=== PATIENT | female | born 1940 | race Caucasian/White ===

== ENCOUNTER 2019-06-24 13:22 | Emergency (ER) | payer OTHER ==
[~2019-06-24] VITALS: Ht 144.8 cm; Wt 53.5 kg
[~2019-06-24 13:22] MED LIST: CALCIUM 600 +1 EAC1 PO; CARDIZEM CD120 MG PO; COUMADIN 5 MG TA5 M1 PO; CRESTOR10 MG PO; CRESTOR5 MG; DULERA 100 MCG/13 GM INH; EYE DROPS; FISH OIL 1,0001 EAC5 PO; LISINOPRIL10 MG PO; LUMIGAN2.5 M1 OPHTHALMIC; NOVOLOG100 UNIT/1; PRADAXA150 MG PO; PRINIVIL40 MG
[2019-06-24 13:55] LABS: ABSOLUTE NEUTROPHILS 2.8 thou/uL (1.4-8.2); BASOPHILS 0.8 % (0.0-2.0); EOSINOPHILS 1.7 % (0.0-3.0); HEMATOCRIT 37.8 % (37.0-47.0); HEMOGLOBIN 12.2 gm/dL (12.0-15.0); MCHC 32.4 g/dL (28.0-37.0); MCV 89.4 fL (80.0-100.0); MONOCYTES 7.3 % (1.0-8.0); PLATELET COUNT 360 thou/uL (150-400); POLYS 45.2 % (36.0-66.0); RBC 4.23 mil/uL (4.20-5.00); RDW 13.9 % (10.5-14.5); WBC 6.2 thou/uL (4.0-11.0)
[2019-06-24 13:56] LABS: CALCIUM 9.5 mg/dL (8.5-10.1); POTASSIUM 3.9 mmol/L (3.5-5.1)
[2019-06-24] MEDS ORDERED: WELLBUTRIN SR150 MG PO (14:33)
[2019-06-24 14:38] VITALS: BP 114/55
--- NOTE | 2019-06-25 08:34 | EKG ---
[place] [address] [facility] [employer] [place] [address] ELECTROCARDIOGRAM REPORT Name: KIMI JO [facility] Room #: DEP [facility]#: [id number] Admission: 06/24/19 Attend Phys: Discharge: 06/24/19 Date of : 44 Report #: [id number] THIS REPORT FOR: //name// [facility] ED Test Date: 2019-06-24 Test Time: 13:38:31 Pat Name: KIMI JO Department: Room: Gender: F Physician Pediatrician: WG : 1940 Requested By: Galen Tapia Order Number: [id number] MD: Frederick Chavez Measurements Intervals [place] Rate: 72 P: 60 SC: 153 QRS: -33 QRSD: 98 T: 45 QT: 414 QTc: 454 Interpretive Statements Sinus rhythm Atrial premature complex Abnormal R-wave progression, early transition Left ventricular hypertrophy Compared to ECG 10/11/2013 20:24:03 Electronically Signed On 06-25-2019 8:34:12 CHARGE AUTHORIZER by Frederick Chavez [email or web address] <ELECTRONICALLY SIGNED> By: Frederick Chavez MD 06/25/19 0834 37 Frederick Chavez MD /EMILY
== END 2019-06-24 14:39 | disposition home or self-care (01) ==
LOC: ER 13:22
PROVIDERS: Emergency Medicine
DX: E11.649 Type 2 diabetes mellitus with hypoglycemia without coma (principal); I10 Essential (primary) hypertension; Z98.890 Other specified postprocedural states; Z87.891 Personal history of nicotine dependence; Z88.1 Allergy status to other antibiotic agents; Z79.899 Other long term (current) drug therapy; Z79.4 Long term (current) use of insulin

== ENCOUNTER 2020-02-06 04:52 | Inpatient (IN) | payer OTHER ==
[~2020-02-06] VITALS: Ht 152.4 cm; Wt 55.3 kg
[~2020-02-06 04:52] MED LIST changes: +WELLBUTRIN XL150 MG PO
[2020-02-06 04:53] VITALS: BP 150/68
[2020-02-06] MEDS ORDERED: TRESIBA FL100 UNIT/1 SUBQ (05:29)
[2020-02-06] MEDS ORDERED: PLAVIX 75 MG TA75 MG PO (05:29)
[2020-02-06] MEDS ORDERED: HUMALOG100 UNIT/1 SUBQ ×2 (05:29→05:30)
[2020-02-06] MEDS ORDERED: SINGULAIR 10 MG10 MG PO (05:30)
[2020-02-06] MEDS ORDERED: SIMBRINZA 1%-0.28 ML EA. EYE (05:31)
[2020-02-06] MEDS ORDERED: LUMIGAN2.5 M1 EA. EYE (05:31)
[2020-02-06 05:36] LABS: ABSOLUTE NEUTROPHILS 7.9 thou/uL (1.4-8.2); BASOPHILS 0.5 % (0.0-2.0); HEMATOCRIT 36.6 % (37.0-47.0); HEMOGLOBIN 12.2 gm/dL (12.0-15.0); LYMPHOCYTES 8.9 % (24.0-44.0); MCH 29.5 pg (26.0-34.0); MCHC 33.3 g/dL (28.0-37.0); MCV 88.7 fL (80.0-100.0); MONOCYTES 3.2 % (1.0-8.0); PLATELET COUNT 262 thou/uL (150-400); POLYS 87.4 % (36.0-66.0); RBC 4.13 mil/uL (4.20-5.00); WBC 9.1 thou/uL (4.0-11.0)
[2020-02-06 05:44] LABS: ANION GAP 10 mmol/L (7-16); BUN 16 mg/dL (7-18); CHLORIDE 97 mmol/L (98-107); CO2 26 mmol/L (21-32); CREATININE 0.8 mg/dL (0.6-1.0); GLUCOSE 152 mg/dL (74-106); SODIUM 133 mmol/L (136-145)
[2020-02-06 05:52] LABS: URINE BILIRUBIN NEGATIVE (Negative); URINE BLOOD NEGATIVE (Negative); URINE CLARITY CLEAR; URINE COLOR YELLOW; URINE GLUCOSE-RANDOM* 2+ (Negative); URINE KETONES NEGATIVE (Negative); URINE LEUKOCYTES-REFLEX NEGATIVE (Negative); URINE NITRITE-REFLEX NEGATIVE (Negative); URINE PROTEIN (DIPSTICK) TRACE (Negative); URINE UROBILINOGEN 0.2 E.U./dl (0.2-1.0)
[2020-02-06 05:53] LABS: MAGNESIUM 1.6 mg/dL (1.8-2.4); TROPONIN-I <0.06 ng/mL (<0.06)
[2020-02-06 06:10] LABS: AMP/METHAMP Negative (Negative); BARBITURATES Negative (Negative); BENZODIAZEPINES Negative (Negative); COCAINE Negative (Negative); METHADONE Negative (Negative); OPIATES Negative (Negative); PCP Negative (Negative)
[2020-02-06 06:47] VITALS: BP 130/48
[2020-02-06 07:39] VITALS: BP 148/47
[2020-02-06 08:14] LABS: CHOLESTEROL 258 mg/dL (<200); HDL CHOLESTEROL 129 mg/dL (>40); LDL CHOLESTEROL 119 mg/dL (<100); TRIGLYCERIDE 53 mg/dL (<150); VLDL 11 mg/dL (<40)
[2020-02-06 08:24] LABS: SERUM ASSESSMENT Clear
[2020-02-06 08:39] LABS: FOLIC ACID 15.3 ng/mL (8.6-58.9); TSH 1.532 uIU/mL (0.358-3.740)
[2020-02-06 09:50] VITALS: BP 153/60
--- NOTE | 2020-02-06 10:01 | NUR ---
REC PT APPROX 0950 FROM ED ACCOMPANIED BY SON [email or web address] SLOW TO ANSWER, A&0X4, EYES RED, DOESN'T USE A WALKER, NO OPEN WOUNDS, PT'S FACE POLINA, SHE STATES SHE IS VERY TIRED. SON WILL HELP ANSWER QUESTIONS WHEN SHE'S NOT REMEMBERING OR ANSWERING TOO SLOW. SEE SEPARATE INTERVENTIONS FOR ASSESSEMENTS
--- NOTE | 2020-02-06 10:16 | NUR ---
HOME MEDICATIONS: UPON FURTHER ASSESSMENT PT UNSURE OF SOME OF THE MEDS NOT CONFIRMED ON HOME REC
--- NOTE | 2020-02-06 16:23 | EKG ---
[facility] [place] [address] ELECTROCARDIOGRAM REPORT Name: KIMI JO [facility] Room #: 204-P ADM IN M.R.#: [id number] Admission: 02/06/20 Attend Phys: Donato Albright MD Discharge: Date of : 44 Report #: [id number] THIS REPORT FOR: cc: FAM - Family physician unknown FAM - Family physician unknown Tay Schneider MD [facility] ~ THIS REPORT FOR: //name// [facility] ED Test Date: 2020-02-06 Test Time: 05:09:21 Pat Name: KIMI JO Department: Room: 204 Gender: F Remote Control Assembler: ajit : 1940 Requested By: Galen Tapia Order Number: [id number] MD: Tay Schneider Measurements Intervals [place] Rate: 82 P: 43 CT: 152 QRS: -31 QRSD: 91 T: -6 QT: 384 QTc: 449 Interpretive Statements Sinus rhythm Probable left atrial enlargement Abnormal R-wave progression, early transition Left ventricular hypertrophy Compared to ECG 06/24/2019 13:38:31 Atrial premature complex(es) no longer present Electronically Signed On 02-06-2020 16:23:15 CDT by Tay Schneider [email or web address] <ELECTRONICALLY SIGNED> By: Tay Schneider MD, [facility] 02/06/20 1623 0509 0509 Tay Schneider MD, [facility] /EPI
[2020-02-06 16:30] VITALS: BP 170/47
[2020-02-06 17:16] LABS: CALCIUM 8.8 mg/dL (8.5-10.1); CREATININE 1.1 mg/dL (0.6-1.0); POTASSIUM 4.8 mmol/L (3.5-5.1)
[2020-02-06 20:35] VITALS: BP 140/77
[2020-02-06 23:06] LABS: GLYCOHEMOGLOBIN (HGB A1C) 8.2 % (4.8-5.6)
[2020-02-07] VITALS (9 sets, daily range): BP systolic 133–173; BP diastolic 66–83
--- NOTE | 2020-02-07 03:39 | NUR ---
ASSUMED CARE OF PATIENT AT 1900. PATIENT AMBULATED WITH SBA. PATIENT REMAINS IMPULSIVE AND DOES NOT CALL FOR ASSISTANCE. RE-EDUCATED PATIENT ABOUT FALL PREVENTION AND HOW TO USE CALL LIGHT FOR HELP. PATIENT DID NOT SLEEP WELL
[2020-02-07 05:44] LABS: ABSOLUTE NEUTROPHILS 3.8 thou/uL (1.4-8.2); BASOPHILS 0.5 % (0.0-2.0); EOSINOPHILS 0.6 % (0.0-3.0); HEMATOCRIT 34.9 % (37.0-47.0); HEMOGLOBIN 11.6 gm/dL (12.0-15.0); MCH 29.6 pg (26.0-34.0); MCHC 33.3 g/dL (28.0-37.0); MCV 89.1 fL (80.0-100.0); MONOCYTES 8.2 % (1.0-8.0); PLATELET COUNT 244 thou/uL (150-400); POLYS 52.7 % (36.0-66.0); RBC 3.92 mil/uL (4.20-5.00); RDW 15.2 % (10.5-14.5); WBC 7.1 thou/uL (4.0-11.0)
[2020-02-07 06:15] LABS: CREATININE 0.8 mg/dL (0.6-1.0); MAGNESIUM 1.9 mg/dL (1.8-2.4); POTASSIUM 4.3 mmol/L (3.5-5.1)
--- NOTE | 2020-02-07 10:46 | HC ---
[facility] [place] [address] CONSULTATION Name: KIMI JO [facility] Room #: 204-P ADM IN M.R.#: [id number] Admission: 02/06/20 Attend Phys: Donato Albright MD Discharge: Date of : 44 Report #: [id number] THIS REPORT FOR: cc: FAM - Family physician unknown FAM - Family physician unknown Kirill Joseph MD ~ CC: [facility] unknown Galen Albright DATE OF SERVICE: 02/06/2020 HISTORY OF PRESENT ILLNESS: This is a 79-year-old female patient who is unable to provide any reliable history. I called the patient's son and I was unable to reach him. We will make another effort to reach him. The record indicates that the patient was admitted with altered mental status. She was confused. She was found to be hypoglycemic. She was given dextrose. She thinks she is better, but to me her speech also looks slurred. I do not know how much is old and how much is new and I cannot reach the patient's son. The history which is worrisome is that the patient is not returning back to the baseline. REVIEW OF SYSTEMS: Positive for diabetes and she was hypoglycemic, it is not clear how long the hypoglycemia lasted. She still appeared to be confused. She said she was not on any blood thinner. REVIEW OF SYSTEMS: Positive for diabetes, back surgery, hypertension, parathyroid surgery. She does drink alcohol. One of the records indicates that she used to be on Pradaxa and Cardizem, she denies that. This was a relevant 14-point review of system. PAST MEDICAL HISTORY: Apparently positive for atrial fibrillation. FAMILY HISTORY: Unremarkable. SOCIAL HISTORY: She says she drinks alcohol every day, but will not specify. PHYSICAL EXAMINATION: The patient's examination indicates the patient is alert, responsive, but her speech looks altered. She can tell me what month it is, but she is very slow. Cranial nerve examination 2-12 looks mostly noncontributory. Neuromuscular examination appears noncontributory. There is no carotid bruit. There is no meningeal sign. Her hearing and vision looks adequate. She has no thyroid mass. Cardiac examination does not appear to be showing any atrial fibrillation. Blood pressure is 170/47, respirations 18, pulse is 97, temperature is 99.4. LABORATORY DATA: Lab indicated white count, which is normal at 9.1. Her sodium [facility] [address] [place] [address] CONSULTATION Name: KIMI JO [facility] Room #: 204-P [facility] IN .R.#: [id number] Admission: 02/06/20 Attend Phys: Donato Albright MD Discharge: Date of : 44 Report #: [id number] is low at 130. Blood sugar is high at 486. Sodium may have to be corrected to the blood sugar value. B12 and TSH are okay. She had a CT scan, which was also unremarkable. IMPRESSION: Pretty difficult to form in this patient. She probably has encephalopathy secondary to hypoglycemia, but if she has paroxysmal atrial fibrillation and has not taken any anticoagulation for 2 years, she is also predisposed to have a stroke. I need to reach the patient's son to get more history. Dr. Steiner will follow up this patient with you tomorrow and try to reach him and this patient will probably need an MRI and an EEG, but we will have the discussion with the patient's son to see if we can get more history to make sure there is no contraindication and we will continue to make an effort to reach him. <ELECTRONICALLY SIGNED> By: Kirill Joseph MD 02/07/20 1046 2019 2137 Kirill Joseph MD /nt
--- NOTE | 2020-02-07 18:48 | NUR ---
PT CARE ASSUMED AT 0700. ASSESSMENTS CHARTED. MEDICATION CHARTED. PT HAD ONE INSTANT OF HYPOGLYCEMIA IN THE MORNING. PT A LITTLE IMPULSIVE. PT ACCIDENTLY PULLED IV; IV THERAPY PLACED NEW IN LT UPPER ARM.
[2020-02-08] VITALS (7 sets, daily range): BP systolic 138–186; BP diastolic 69–89
--- NOTE | 2020-02-08 19:52 | NUR ---
PT CARE ASSUMED AT 0700. ASSESSMENT CHARTED. MEDICATION CHARTED. PT IS VERY FORGETFUL. CONTINENT; OFTEN WILL RISE TO GO TO BATHROOM WITHOUT CALLING. PT COMPLAINS THAT HER NECK HURTS; ACETAMINOPHEN AND WARM TOWELS.
--- NOTE | 2020-02-09 03:53 | NUR ---
TOOK OVER CARE OF PATIENT AT 2340. ASSESSMENT CHARTED, MEDS CHARTED GIVEN. PATIENT RESTING IN BED UPON MY ARRIVAL. FALL PRECAUTIONS IN PLACE PATIENT IS CONFUSED. PATIENT CALLED CORRECTLY PRIOR TO GETTING UP TO THE BATHROOM. PLAN OF CARE: FAMILY IS CONCERNED THE PATIENT IS NOT ABLE TO LIVE ALONE ANY MORE AND WANT TO LOOK AT A SNF. DENIED PAIN DURING MY TIME.
[2020-02-09 04:00] VITALS: BP 164/84
[2020-02-09 07:45] VITALS: BP 144/78
[2020-02-09 11:40] VITALS: BP 178/75
[2020-02-09] MEDS ORDERED: CARDIZEM CD 18180 M3 PO (12:43)
[2020-02-09] MEDS ORDERED: PANTOPRAZOLE SO40 M1 PO (12:43)
[2020-02-09] MEDS ORDERED: VITAMIN B-12500 MCG PO (12:43)
[2020-02-09] MEDS ORDERED: VITAMIN D325 MC1 PO (12:43)
[2020-02-09] MEDS ORDERED: VITAMIN B-1100 M2 PO (12:43)
[2020-02-09] MEDS ORDERED: LANTUS SUBQ (12:43)
[2020-02-09] MEDS ORDERED: HUMALOG100 UNIT/1 SUBQ (12:43)
--- NOTE | 2020-02-09 12:51 | 2DMMODE ---
[facility] [address] [place] [address] 2 D/M-MODE ECHOCARDIOGRAM Name: KIMI JO [facility] Room #: 204-P ADM IN M.R.#: [id number] Admission: 02/06/20 Attend Phys: Jadon Phillips MD Discharge: Date of : 44 Report #: [id number] THIS REPORT FOR: cc: FAM - Family physician unknown FAM - Family physician unknown Joaquin Acevedo MD ~ APPROVED REPORT Study performed: 02/09/2020 12:01:02 EXAM: Comprehensive 2D, Doppler, and color-flow Echocardiogram Patient Location: Bedside Room #: 204 Status: routine BSA: 1.51 HR: 74 bpm BP: 144/78 mmHg Rhythm: NSR Other Information Study Quality: Good Indications Diabetes Atrial Fibrillation Hypertension/HDD 2D Dimensions RVDd: 36.82 mm IVSd: 9.80 (7-11mm) LVOT Diam: 21.06 (18-24mm) LVDd: 46.67 mm PWd: 11.10 (7-11mm) Ascending Ao: 28.80 (22-36mm) LVDs: 31.22 (25-40mm) Aortic Root: 29.67 mm IVC: 24.00 mm Volumes Left Atrial Volume (Systole) Single Plane 4CH: 69.03 mL Single Plane 2CH: 56.17 mL LA ESV Index: 45.00 mL/m2 Aortic Valve AoV Peak Randy.: 1.31 m/s AO Peak Gr.: 6.85 mmHg LVOT Max P.31 mmHg LVOT Max V: 0.91 m/s [facility] [address] [place] [address] 2 D/M-MODE ECHOCARDIOGRAM Name: KIMI JO [facility] Room #: 204-P [facility] IN .R.#: [id number] Admission: 02/06/20 Attend Phys: Olvin Morales Discharge: Date of : 44 Report #: [id number] ALBERTA Vmax: 2.42 cm2 AI Vmax: 3.95 m/s AI [place]: 1.57 m/s2 AI PHT: 730.53 ms Mitral Valve E/A Ratio: 0.6 MV Decel. Time: 267.42 ms MV E Max Randy.: 0.55 m/s MV A Randy.: 0.88 m/s MV PHT: 77.55 ms IVRT: 175.32 ms Pulmonary Valve PV Peak Randy.: 0.76 m/s PV Peak Gr.: 2.33 mmHg Pulmonary Vein P Vein S: 0.59 m/s P Vein A: 0.25 m/s P Vein D: 0.28 m/s P Vein A Dur.: 78.4 msec P Vein S/D Ratio: 2.11 Tricuspid Valve TR Peak Randy.: 2.52 m/s TR Peak Gr.: 25.43 mmHg PA Pressure: 35.00 mmHg Left Ventricle The left ventricle is normal size. There is normal LV segmental wall motion. There is normal left ventricular wall thickness. The left ventricular systolic function is normal. The left ventricular ejection fraction is within the normal range. LVEF is 60-65%. Grade I - abnormal relaxation pattern. Right Ventricle The right ventricle is normal size. The right ventricular systolic function is normal. Atria Left atrium is dilated. Right atrium is dilated. Aortic Valve The aortic valve is normal in structure. The Aortic valve is sclerotic. Mild aortic regurgitation. There is no aortic valvular stenosis. Mitral Valve [facility] [address] [place] [address] 2 D/M-MODE ECHOCARDIOGRAM Name: KIMI JO [facility] Room #: 204-P [facility] IN .R.#: [id number] Admission: 02/06/20 Attend Phys: Olvin Morales Discharge: Date of : 44 Report #: [id number] The mitral valve is normal in structure. Mild mitral regurgitation. No evidence of mitral valve stenosis. Tricuspid Valve The tricuspid valve is normal in structure. There is mild tricuspid regurgitation. Estimated PAP 35 mmHg. There is mild pulmonary hypertension. Pulmonic Valve The pulmonary valve is normal in structure. There is no pulmonic valvular regurgitation. Great Vessels The aortic root is normal in size. IVC is dilated and collapses <50% with inspiration. Pericardium There is no pericardial effusion. <Conclusion> The left ventricle is normal size. LVEF is 60-65%. Left atrium is dilated. Right atrium is dilated. The aortic valve is normal in structure. The Aortic valve is sclerotic. Mild aortic regurgitation. The mitral valve is normal in structure. Mild mitral regurgitation. The tricuspid valve is normal in structure. There is mild tricuspid regurgitation. Estimated PAP 35 mmHg. There is mild pulmonary hypertension. The pulmonary valve is normal in structure. There is no pericardial effusion. <ELECTRONICALLY SIGNED> By: Joaquin Acevedo MD 02/09/20 1250 49 49 Joaquin Acevedo MD /INF
[2020-02-09] MEDS ORDERED: LISINOPRIL10 MG PO (13:03)
[2020-02-09] MEDS ORDERED: ASA81BEC PO (13:04)
--- NOTE | 2020-02-09 13:30 | NUR ---
RECEIVED PT'S CARE AROUND 0710; PT. ON BED; RESTING WITH EYES CLOSED; EQUAL CHEST EXPANSION NOTICED; SR ON THE MONITOR; TRYING TO GET UP FROM BED AFTER DR. WARD; EDUCATED ABOUT FALL PREVENTIONS; FORGETFUL; TRYING TO GET UP FROM BED WITHOUT CALLING; REMAINED EVERYTIME; REFUSED SOME AM MEDICATIONS; EDUCATED ABOUT THE IMPORTANCE OF TAKING MEDICATION; REFUSED IT; AOX4; FORGETFUL; NO C/O PAIN; SR ON THE MONITOR; PER HOSPITALIST PT. MIGHT GO AFTER SQUAD LEADER ROUNDING; PER SQUAD LEADER PT. NOT CANDIDATE FOR BLOOD THINNERS; DR. VELARDE NOTIFIED; D/C ORDERS ON PLACED; PT. NOTIFIED; ST. DAUGHTER WILL PICK HER UP AROUND 1440; ASSESSMENT CHARGED; FOLLOWED POC; WORKING ON D/C PAPERS;
[2020-02-09 13:41] VITALS: BP 178/75
--- NOTE | 2020-02-09 16:08 | NUR ---
Patient admits with hypoglycemia. Phys sp with patient regarding post acute care and patient refuses. Phys spoke with son and alerted of refusal and patient with need for 24/7 supervision. Sp [facility] patient who reports she lives alone in apt with her cat. She reports she is not going anywhere but home. She reports she does not need any therapy she walks a mile daily. She reports she does not drive for fear of her hypoglycemia. She manages her own medicatios and blood sugars. She reports her PCP Dr Galen Bahena who used to come to [facility]. Discussed HH and patient agreeable for home health care. She reports no preference for HH agency. She reports she will be going to work soon. 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 She is insistant on dc home. Referral to [facility] for home health care.
--- NOTE | 2020-02-09 17:12 | NUR ---
FAXED REFERRAL TO [facility] HH RECEIVED CONFIRMATION AND SPOKE WITH [facility] IN ADM THEY WILL REVIEW I ALSO INCLUDED DC ORDERS/SUMMARY WITH FAX AND WILL F/U WITH THEM IN THE MORNING.
[2020-02-10 10:41] VITALS: BP 178/75
--- NOTE | 2020-02-16 09:17 | HC ---
[facility] [place] [address] CONSULTATION Name: KIMI JO [facility] Room #: 204-P [facility] IN M.R.#: [id number] Admission: 02/06/20 Attend Phys: Jadon Phillips MD Discharge: 02/09/20 Date of : 44 Report #: [id number] THIS REPORT FOR: cc: SHANTI - Family physician unknown FAM - Family physician unknown Lisseth Espinoza MD ~ CC: SHANTI unknown Galen Albright DATE OF SERVICE: 02/06/2020 ENDOCRINE CONSULTATION NOTE CONSULTING PHYSICIAN: Dr. Albright. REASON FOR CONSULTATION: Hypoglycemia, type 2 diabetes mellitus. HISTORY OF PRESENT ILLNESS: This is a 79-year-old female patient whose medical background is significant for type 2 diabetes mellitus, hypertension as well as AFib, who presented to the ER at [facility] with EMS due to confusion, altered mental state and hypoglycemia. The patient's son indicated the staff earlier today that the patient lives alone and is fairly independent. He apparently found her earlier today confused and her blood sugar proved to be in the 40s after which EMS was called. Upon arrival, the patient was treated with dextrose 50 and managed as per the [facility] hypoglycemia protocol with a good response. When I interviewed the patient, she was still confused, she indicated that she has had diabetes for over 20 years, and that she is treated with multiple daily injections of insulin daily, but could not elaborate on the specific brands and dosing system of her insulin. When asked about the level of control that she has, she indicated that her blood glucose values fluctuate from being somewhat low to being high. She did not believe that she had experienced significant issues with severe neuroglycopenic hypoglycemia in the past. She does not believe that type 2 diabetes mellitus had caused any issues as far as retinopathy, nephropathy or neuropathy. The patient denied a history of coronary artery disease or other vascular disease. Having reviewed her medical records, it appears that the patient is maintained on Humalog insulin 32 units before meals, as well as degludec insulin 8 units daily. Also, the patient is on lisinopril 10 mg daily and was at some point at least on rosuvastatin 10 mg daily as well. [facility] [address] [place] [address] CONSULTATION Name: KIMI JO [facility] Room #: 204-P [facility] IN [facility].#: [id number] Admission: 02/06/20 Attend Phys: Jadon Phillips MD Discharge: 02/09/20 Date of : 44 Report #: [id number] REVIEW OF SYSTEMS: CONSTITUTIONAL: Fatigue, tiredness, but not fever or chills or body weight changes. HEENT: Negative for sore throat, sinus pain or ear drainage. PULMONARY: Occasional shortness of breath, but no cough or hemoptysis. CARDIAC: Negative for chest pain, palpitations, syncope or presyncope. GASTROINTESTINAL: Negative for vomiting or changes in bowel frequency, but noted for occasional abdominal distention, abdominal discomfort and nausea. NEUROLOGY: Negative for seizure activity or frequent severe headaches. DERMATOLOGY: Negative for rash, ulceration, discoloration or other major abnormalities. Otherwise, review of systems is noncontributory other than those mentioned in HPI. PAST MEDICAL HISTORY: 1. Type 2 diabetes mellitus. 2. Hypertension. 3. Hyperlipidemia. 4. Atrial fibrillation. OUTPATIENT MEDICATIONS: On record include Wellbutrin 450 mg daily, Humalog insulin 32 units before meals, Lumigan 0.01% applied to her eyes at night, lisinopril 10 mg daily, fish oil supplements, calcium carbonate with vitamin D daily, Tresiba insulin 8 units daily, Plavix 75 mg daily, Singulair 10 mg daily. ALLERGIES: Omnicef. FAMILY HISTORY: Noncontributory. SOCIAL HISTORY: The patient lives alone. Denies use of tobacco or illicit drugs. Drinks alcohol only seldom. PHYSICAL EXAMINATION: GENERAL: female patient who is not in apparent pain or distress. VITAL SIGNS: Blood pressure is 153/60 mmHg, respiration rate 18 per minute, temperature 37.4 degrees Celsius, pulse 85 beats per minute. CONSTITUTIONAL: The patient is sitting upright in her bed, appears a bit confused, but not in apparent pain or distress. HEENT: Anicteric sclerae. Intact extraocular motions. NECK: Supple, without JVD or thyromegaly. CHEST: Noted for moderate air entry with scattered rales. No wheeze or crackles. HEART: Regular rate and rhythm without murmurs or gallops. ABDOMEN: Soft, lax. No guarding. Active bowel sounds. EXTREMITIES: Lower extremity exam is noted for trace ankle edema, no skin [address] [address] CONSULTATION Name: KIMI JO Room #: 204-P DIS IN M.R.#: [id number] Admission: 02/06/20 Attend Phys: Jadon Phillips MD Discharge: 02/09/20 Date of : 44 Report #: [id number] breaks, and with appreciable pedal pulses. NEUROLOGIC: Awake, alert, but confused, disoriented and pauses heavily before making answers, strays off point quite a bit largely, otherwise nonfocal. PSYCHIATRIC: Flat mood, flat affect, distorted thought content. LABORATORY RESULTS: Blood glucose on arrival was 113, then went to 109, 189 and then 219 mg/dL. Sodium 133, potassium 4.0, chloride 97, CO2 of 26, anion gap 10, BUN 16, creatinine 0.8, AST 40, total bilirubin 0.4, direct bilirubin less than 0.1, calcium 9.0, magnesium 1.6, alkaline phosphatase 83, ALT 45, total protein 7.3, albumin 3.4, EGFR 70. Total CPK 99. Total cholesterol 258, triglycerides 53, HDL 129, LDL 119. White blood count 9.1, hemoglobin 12.2, hematocrit 36.6, platelets 262. Hemoglobin A1c was ordered and is pending. TSH 1.53. ASSESSMENT AND PLAN: 1. Hypoglycemia. As noted above, the patient presented primarily because of altered level of consciousness and confusion in the setting of moderate hypoglycemia. Whether hypoglycemia was the cause of her presentation is unclear, especially that she continues to be confused well after her blood glucose values have been stabilized. Regardless of whether or not that is the case, it is certainly to be avoided for the patient to experience frequent moderate to severe hypoglycemia. Although I have found a description of the patient's insulin regimen and her medical records, I would very much rather ascertain her true insulin practices before making definitive recommendations rodent exterminator. The patient at the present time remains off all active antidiabetic therapy and has steadily resolved her issues with hypoglycemia. She is maintaining adequate glucose control without dextrose support. We will continue to monitor her blood glucose closely and adjust her regimen as needed as well as response to hypoglycemia as per the [facility] hypoglycemia protocol. 2. Type 2 diabetes mellitus. The patient is too confused to give meaningful details about her diabetes history, whether from the standpoint of glycemic control at home or history of insulin use as well as diabetic complications. However, it appears that she is on an aggressive insulin therapy, mostly in the basal bolus format. Given the hypoglycemia on presentation, active insulin therapy will be held off for now except for the as needed use of Humalog supplemental scale low intensity as we monitor her blood glucose a.c. and at bedtime. Furthermore, I will start the patient on linagliptin 5 mg daily to prevent accelerated escalation in her blood glucose values. Blood glucose monitoring will commence a.c. and at bedtime. 3. Hypertension. The patient's level of blood pressure control is adequate on the current regimen, she is to continue with the same. 4. Hyperlipidemia. It appears that the patient is not currently on active lipid-lowering therapy, but given her measured lipid panel during this hospital stay, she stands to benefit from statin therapy to maintain an LDL cholesterol of 70 mg/[place] [address] CONSULTATION Name: KIMI JO [facility] Room #: 204-P DIS IN .R.#: [id number] Admission: 02/06/20 Attend Phys: Jadon Phillips MD Discharge: 02/09/20 Date of : 42 Report #: [id number] 5. I certainly appreciate this consultation by Dr. Albright. I have reviewed the patient's clinical care notes, laboratory data, radiology studies as well as other pertinent information for over 35 minutes in addition to my encounter time with the patient. <ELECTRONICALLY SIGNED> By: Lisseth Espinoza MD 02/16/20 0917 [id number] Lisseth Espinoza MD /nt
== END 2020-02-09 15:30 | disposition home health service (06) | DRG 637 ==
LOC: ER 04:52 → 2N 06:26 → EROBS 06:26 → 2N 09:39
PROVIDERS: Emergency Medicine; Hospitalist; Nurse Practitioner; ADMIT Hospitalist; ATTEND Hospitalist
DX: E11.649 Type 2 diabetes mellitus with hypoglycemia without coma (principal); G93.41 Metabolic encephalopathy; I10 Essential (primary) hypertension; E78.5 Hyperlipidemia, unspecified; N17.0 Acute kidney failure with tubular necrosis; I48.0 Paroxysmal atrial fibrillation; E83.42 Hypomagnesemia; J45.909 Unspecified asthma, uncomplicated; F41.9 Anxiety disorder, unspecified; H40.9 Unspecified glaucoma; E11.9 Type 2 diabetes mellitus without complications; F10.10 Alcohol abuse, uncomplicated; Z98.1 Arthrodesis status; Z79.899 Other long term (current) drug therapy; Z79.4 Long term (current) use of insulin; Z88.1 Allergy status to other antibiotic agents; Z87.891 Personal history of nicotine dependence; Z79.01 Long term (current) use of anticoagulants
CPT/HCPCS: 10081

== ENCOUNTER 2020-02-14 23:14 | Inpatient (IN) | payer OTHER ==
[~2020-02-14] VITALS: Ht 147.3 cm; Wt 58.5 kg
[~2020-02-14 23:14] MED LIST changes: +ASA81BEC PO; +CARDIZEM CD 18180 M3 PO; +HUMALOG100 UNIT/1 SUBQ; +LANTUS SUBQ; +LUMIGAN2.5 M1 EA. EYE; +PANTOPRAZOLE SO40 M1 PO; +PLAVIX 75 MG TA75 MG PO; +SIMBRINZA 1%-0.28 ML EA. EYE; +SINGULAIR 10 MG10 MG PO; +TRESIBA FL100 UNIT/1 SUBQ; +VITAMIN B-1100 M2 PO; +VITAMIN B-12500 MCG PO; +VITAMIN D325 MC1 PO
[2020-02-14 23:15] VITALS: BP 116/34
[2020-02-14 23:43] LABS: ABSOLUTE NEUTROPHILS 14.6 thou/uL (1.4-8.2); BASOPHILS 0.6 % (0.0-2.0); EOSINOPHILS 0.1 % (0.0-3.0); HEMATOCRIT 42.9 % (37.0-47.0); HEMOGLOBIN 12.4 gm/dL (12.0-15.0); LYMPHOCYTES 5.5 % (24.0-44.0); MCH 29.6 pg (26.0-34.0); MCHC 28.9 g/dL (28.0-37.0); MCV 102.4 fL (80.0-100.0); MONOCYTES 4.1 % (1.0-8.0); PLATELET COUNT 402 thou/uL (150-400); POLYS 89.7 % (36.0-66.0); RBC 4.19 mil/uL (4.20-5.00); RDW 16.2 % (10.5-14.5); WBC 16.3 thou/uL (4.0-11.0)
[2020-02-14 23:52] LABS: ALBUMIN 3.6 g/dL (3.4-5.0); BUN 33 mg/dL (7-18); CHLORIDE 91 mmol/L (98-107); CREATININE 2.1 mg/dL (0.6-1.0); DIRECT BILIRUBIN < 0.1 mg/dL (<0.1-0.2); LIPASE 719 U/L (73-393); SGOT 30 U/L (15-37); SGPT 29 U/L (30-65); SODIUM 129 mmol/L (136-145); TOTAL BILIRUBIN 0.7 mg/dL (0.2-1.0)
[2020-02-15] VITALS (53 sets, daily range): BP systolic 118–178; BP diastolic 50–77
[2020-02-15] LABS: ANION GAP 30 mmol/L (7-16)
[2020-02-15 00:01] LABS: CO2 8 mmol/L (21-32)
[2020-02-15 00:15] LABS: BE(vivo) -22.9 mmol/L (-2 to +3); HCO3 7.2 mmol/L (22.0-26.0); PCO2 VENOUS 29.4 mmHg (41.0-51.0); PO2 VENOUS 48.8 mmHg (35.0-45.0)
[2020-02-15 00:21] LABS: GLUCOSE 925 mg/dL (74-106)
[2020-02-15 00:24] LABS: URINE BILIRUBIN NEGATIVE (Negative); URINE BLOOD TRACE (Negative); URINE CLARITY CLEAR; URINE COLOR YELLOW; URINE GLUCOSE-RANDOM* 3+ (Negative); URINE KETONES 3+ (Negative); URINE LEUKOCYTES-REFLEX NEGATIVE (Negative); URINE NITRITE-REFLEX NEGATIVE (Negative); URINE PROTEIN (DIPSTICK) NEGATIVE (Negative); URINE UROBILINOGEN 0.2 E.U./dl (0.2-1.0)
[2020-02-15 03:41] LABS: CALCIUM 8.3 mg/dL (8.5-10.1); CREATININE 1.7 mg/dL (0.6-1.0); PHOSPHORUS 2.8 mg/dL (2.5-4.9)
[2020-02-15 03:44] LABS: POTASSIUM 4.5 mmol/L (3.5-5.1)
--- NOTE | 2020-02-15 03:48 | NUR ---
INSULIN DRIP TITRATED TO 5 UNITS
--- NOTE | 2020-02-15 03:51 | NUR ---
JARED KESSLER HORSE RACING MANAGER, LET HER KNOW OF RECENT BLOOD SUGAR, AND RATE TITRATION, AT THIS TIME SHE DOES NOT WANT TO START ON IV DEXTROSE, BUT RECHECK IN 1 HOUR AND LET HER KNOW.
--- NOTE | 2020-02-15 04:43 | NUR ---
tried to call report. nurse unavailable for report.
--- NOTE | 2020-02-15 04:57 | NUR ---
tried to call report; nurse unavailable.
--- NOTE | 2020-02-15 07:52 | NUR ---
Arrived from ER around 0540. Pt. got situated and made comfortable. Able to answer orientation questions except date. She is very sleepy but arousable. ST in the monitor. SCD's applied. Insulin gtt and IV fluids infusing. Report given to day RN to complete admission process.
[2020-02-15 08:16] LABS: CALCIUM 8.7 mg/dL (8.5-10.1); CREATININE 1.4 mg/dL (0.6-1.0); MAGNESIUM 1.9 mg/dL (1.8-2.4); PHOSPHORUS 2.7 mg/dL (2.5-4.9); POTASSIUM 4.4 mmol/L (3.5-5.1)
--- NOTE | 2020-02-15 11:57 | NUR ---
Nurse spoke to patient's daughter, Nanda Rodriguez, and patients brother, Martín Galeas on patients status at around 1105 this morning. The patients family expressed concerned on patients mental health and suicical ideations. When assessed, patient denies all mental health history and suicical thoughts. Patient is alert and oriented but easily distracted and is a poor historian. She has a very flat affect.She does not make eye contact or seem to show interest in her care plan. The patients family was updated on her status and understand her condition.
[2020-02-15 12:55] LABS: CALCIUM 8.7 mg/dL (8.5-10.1); CREATININE 1.2 mg/dL (0.6-1.0); MAGNESIUM 1.8 mg/dL (1.8-2.4); PHOSPHORUS 2.6 mg/dL (2.5-4.9); POTASSIUM 4.1 mmol/L (3.5-5.1)
--- NOTE | 2020-02-15 13:03 | NUR ---
Nurse spoke to patients sister, Monique Lennon, and updated her on the patients condition. Patients sister requested an psychiatric evaluation and nurse informed her we have an social science instructor consult that will be help us with this tomorrow. She also stated she is concerned she is suicidal and stressed that she is unable to make her own decisions. Patient is progressing towards goals in that her glucose is stable and anion gap closed.
--- NOTE | 2020-02-15 18:06 | NUR ---
Orders received from Dr Vyas to go ahead and transfer out of the ICU. Patient informed and understands plan of care. Blood sugars are stable and patient is off of her insulin gtt. Patient is successfully moving toward her goals.
--- NOTE | 2020-02-15 18:21 | NUR ---
Dr Vyas informed of patients high blood pressure and reviewed and restarted many reconcilied medications. Physician aware of patients blood pressure.
[2020-02-16] VITALS (8 sets, daily range): BP systolic 118–177; BP diastolic 40–78
--- NOTE | 2020-02-16 00:59 | NUR ---
Received report from offgoing RN and assumed patient care. Patient is AAOx4, SR on the monitor and is on room air. Patient has flat affect and is watching tv. Patient taken to at 0045. Care relinquished.
--- NOTE | 2020-02-16 03:57 | NUR ---
PT TRANSFERRED FROM ICU TO ROOM 206 AROUND 0100, PT IS AWAKE, ALERT AND ORIENTED, FORGETFUL, SR ON THE MONITOR, VSS, ASSESSMENTS CHARTED, DENIES PAIN OR SOB, DENIES CONCERNS, SLEEPING AT THIS TIME, WILL CONTINUE TO MONITOR
[2020-02-16 04:05] LABS: GLYCOHEMOGLOBIN (HGB A1C) 8.6 % (4.8-5.6)
[2020-02-16 05:23] LABS: CALCIUM 8.4 mg/dL (8.5-10.1); CREATININE 0.8 mg/dL (0.6-1.0); MAGNESIUM 1.6 mg/dL (1.8-2.4); PHOSPHORUS 2.1 mg/dL (2.5-4.9); POTASSIUM 4.1 mmol/L (3.5-5.1)
--- NOTE | 2020-02-16 08:00 | EKG ---
[facility] [place] [address] ELECTROCARDIOGRAM REPORT Name: KIMI JO [facility] Room #: 206-P ADM IN M.R.#: [id number] Admission: 02/15/20 Attend Phys: Dg Rodríguez MD Discharge: Date of : 44 Report #: [id number] THIS REPORT FOR: cc: FAM - Family physician unknown FAM - Family physician unknown Tay Schneider MD [facility] THIS REPORT FOR: //name// [facility] ED Test Date: 2020-02-15 Test Time: 01:55:57 Pat Name: KIMI JO Department: Room: [facility] Gender: F Box Cutter: : 1940 Requested By: Keturah Moscoso Order Number: [id number] MD: Tay Schneider Measurements Intervals [place] Rate: 103 P: 63 [place]: 148 QRS: -39 QRSD: 90 T: 89 QT: 336 QTc: 440 Interpretive Statements Sinus tachycardia Left axis deviation Abnormal R-wave progression, early transition Minimal ST depression, anterolateral leads Compared to ECG 02/06/2020 05:09:21 Left-axis deviation now present ST (T wave) deviation now present Sinus tachycardia is now present Electronically Signed On 02-16-2020 8:00:23 CDT by Tay Schneider [email or web address] <ELECTRONICALLY SIGNED> By: Tay Schneider MD, [facility] 02/16/20 0800 4 4 Tay Schneider MD, [facility] /EPI
[2020-02-16 09:23] LABS: HEMATOCRIT 33.1 % (37.0-47.0); HEMOGLOBIN 11.1 gm/dL (12.0-15.0); MCH 29.9 pg (26.0-34.0); MCHC 33.6 g/dL (28.0-37.0); RBC 3.72 mil/uL (4.20-5.00)
[2020-02-16 09:24] LABS: MCV 88.9 fL (80.0-100.0)
--- NOTE | 2020-02-16 15:11 | NUR ---
Nutrition: Assessed d/t 2 point risk for reported 2-13# of wt loss and lower appetite. Pt just here 02/05-02/08 and didn't report any wt loss or appetite issues at that admit. CBW per daily 02/15 wt at 129.4#. Weighed 126.7# at admit ~1 week ago per 02/05. This indicates a +2.7 wt gain. BMI 27 kg/m2. Pt seemed unconcerned w/ wt on interview. Able to voice her appetite is currently low, mainly due to acutely ill and "hates the food." Took 1 big bite of hamburger at lunch; remainder untouched. States at home appetite normally completely fine, when she's able to choose/cook her own food. RD assisted in modifying upcoming dinner and breakfast to promote greater PO intake, limit CHOs as pt here for DKA, and promote protein picks. Pt to have chicken salad, cottage cheese and yogurt tonight. On SSI, BG still 218 mg/dl at lunch. RD educated on carb breakdown and goal to incorporate protein/fat at meals to minimize BG spikes. Anticipate low nutrition risk w/ menu changes, protein sources added.
--- NOTE | 2020-02-16 15:21 | NUR ---
Case opened to follow for dc planning. Pt known to cm from recent stay last week. She was dc'd to home on 02/09/20 with [facility] referral for PT/OT/RN. Manager Clinical attempted to reach the pt in her room with no answer and magnetic tape typewriter operator attempted to call her son Jasson but his phone went to a full T-Systemail box. Manager Clinical spoke with the care team. Pt here for DKA and pending psych eval for depression. Pt lives alone indep in a first floor apt. She has an elev to avoid the 21 steps. She refuses SNF referral and feels she can return home. Per the care team, pt's children and siblings are aware that she is struggling to maintain indep living and seems depressed lately. Pt told therapy she drinks wine daily. She is indep with gait and adl's and has managed her bills and homemaker chores indep. Family may need to provide more supervision of her medications and limit access to ethol. The attending reports the pt is open to HH at [facility]. Manager Clinical spoke with [facility]. Their RN went out to see the pt for approx an hour;however the declined to sign their service agreement as she did not feel she needed it. [facility] is agreeable to taking her referral again at [facility]. Will fax an h/p to them anticipating hh will be recommended again at [facility].
--- NOTE | 2020-02-16 16:58 | NUR ---
FAXED CLINICAL UPDATE TO [facility] SPOKE WITH INTAKE THEY RECEIVED UPDATE. PT DISCHARGED LAST ADM WITH [facility] THEN DECLINED WHEN THEY TRIED VISITING HER BUT PT IS WILLING TO [facility] AT DISCHARGE AND [facility] WILL FOLLOW,
--- NOTE | 2020-02-16 18:17 | NUR ---
ASSESSMENT CHARTED - MEDS PER SEP - BLOOD SUGAR COVERED WITH 4 UNITS LISPRO PRIOR TO EACH MEAL. BP ELEVATED THIS AFTERNOON - GIVEN HYDRALAZINE ORDERED. PT SEEN BY PHYS AND OCC THERAPY THIS SHIFT, AMBULATED IN THE HALLS. PT WITH SMALL BM. PHYS CONSULT COMPLETED ORDERED, SEE BY FILTER MACHINE OPERATOR. NO CO'S OF PAIN OR NAUSEA. RODERICK DIET AND FLUIDS MOD AMOUNT. UP TO THE RECLINER. AMBULATING TO THE BATHOOM. PT MENTATION THROUGHOUT THE DAY HAS WAINED. AT TIMES APPEARS VERY "WITH IT" AT OTHER TIMES IS SLOW WITH THOUGHT PROCESS AND MAKES COMENTS THAT DO NOT MAKE SENSE. NO CO'S AT THE PRESENT TIME, APPEARS TO BE RESTING COMFORTABLY.
[2020-02-17 01:10] LABS: GLYCOHEMOGLOBIN (HGB A1C) 8.6 % (4.8-5.6)
--- NOTE | 2020-02-17 05:32 | NUR ---
PROGRESS PT A/OX 4 A LITTLE IRRITABLE. QUESTIONED ABOUT SUICIDAL IDEATION AND PT DENIES STATED DRINKING MAKES ME HAPPY I DON'T DRINK TO MAKE MY SELF SAD AND SUICIDAL. SISTER CONTACTING PT AND GIVING ORDERS AND PT FEELS REBELLIOUS. STATES SHE DOESN'T WANT TO QUIT BUT THAT SHE WILL TRY. VSS, UP WITH SBA TO BATHROOM AMBULATED SURELY BUT SLOWLY. PLANS TO [facility].
[2020-02-17 05:41] VITALS: BP 149/47
[2020-02-17 06:08] LABS: CALCIUM 8.6 mg/dL (8.5-10.1); CREATININE 0.8 mg/dL (0.6-1.0); MAGNESIUM 1.9 mg/dL (1.8-2.4); POTASSIUM 3.5 mmol/L (3.5-5.1)
[2020-02-17 07:43] VITALS: BP 170/70
[2020-02-17 08:18] LABS: ABSOLUTE NEUTROPHILS 5.2 thou/uL (1.4-8.2); BASOPHILS 0.7 % (0.0-2.0); EOSINOPHILS 0.6 % (0.0-3.0); HEMATOCRIT 30.1 % (37.0-47.0); HEMOGLOBIN 10.1 gm/dL (12.0-15.0); LYMPHOCYTES 24.3 % (24.0-44.0); MCH 30.2 pg (26.0-34.0); MCHC 33.6 g/dL (28.0-37.0); MCV 89.7 fL (80.0-100.0); MONOCYTES 6.7 % (1.0-8.0); PLATELET COUNT 268 thou/uL (150-400); POLYS 67.7 % (36.0-66.0); RBC 3.35 mil/uL (4.20-5.00); RDW 15.1 % (10.5-14.5); WBC 7.7 thou/uL (4.0-11.0)
[2020-02-17 11:50] VITALS: BP 181/58
[2020-02-17] MEDS ORDERED: LANTUS100 UNIT/M SUBQ (13:33)
[2020-02-17] MEDS ORDERED: NOVOLOG100 UNIT/1 SUBQ (13:34)
[2020-02-17 13:38] VITALS: BP 141/40
--- NOTE | 2020-02-17 14:32 | NUR ---
SP with family intervention specialist has called upset with hospital feel patient needs inpatient psych treatment. Sp with dtr who reports patient dc from hospital then went to PCP and then she needed to call EMS the next day from being seen by PCP. She has been drinking. DIscussed with dtr if patient competent they can chose to drink. Dtr feels patient is suicidal however patient has denied this to staff and psychiatrist. Dr Urban suggested to family to complete affidavit requests 2 family members to complete. Reviewed with dtr who plans to come to hospital with spouse to complete. Discussed with dtr, Dr Urban would review and determine inpatient psych treatment recommended. Dtr came to hospital and reports she just wants her mom discharged in her care. She is not pleased with [facility] and the communication. Notified Dr Robertson. Also notified that dtr stated she wants patient discharged and she is taking patient to [facility]. Dr Robertson discharged patient from hospital. no further needs.
--- NOTE | 2020-02-17 14:37 | NUR ---
ASSUMED CARE OF PT AT SHIFT CHANGE. ASSESSMENTS CHARTED. MEDS GIVEN PER SEP. PT A&OX4, NO C/O PAIN. WHEN FAMILY LEARNED THAT PT WAS DISCHARGING THEY BECAME VERY UPSET, SAYING SHE WAS NOT SAFE TO DISCHARGE HOME D/T ALCOHOL ABUSE AND SUICIDAL IDEATIONS. DR. RUELAS AND DR. ALLEN WERE NOTIFIED. EVENTUALLY PT TOLD FAMILY SHE WOULD ALLOW THEM TO TAKE HER TO A [facility] FACILITY AFTER DISCHARGING FROM HERE. DISCHARGE ORDERS AND INSTRUCTIONS COMPLETE. TELE AND IV DC'D. THIS NURSE TOOK PT TO MAIN ENTRANCE VIA WHEELCHAIR TO DAUGHTER CARMEN WAITING IN PRIVATE CAR.
[2020-02-17 15:27] VITALS: BP 141/40
[2020-02-18 00:07] LABS: GLYCOHEMOGLOBIN (HGB A1C) 8.5 % (4.8-5.6)
--- NOTE | 2020-02-19 11:54 | HC ---
[facility] [place] [address] CONSULTATION Name: KIMI JO [facility] Room #: 206-P [facility] IN M.R.#: [id number] Admission: 02/15/20 Attend Phys: Chelsie Vyas MD Discharge: 02/17/20 Date of : 44 Report #: [id number] THIS REPORT FOR: cc: SHANTI - Family physician unknown SHANTI - Family physician unknown Lisseth Espinoza MD ~ CC: SHANTI unknown Chelsie Vyas DATE OF SERVICE: 02/17/2020 ENDOCRINE CONSULTATION NOTE CONSULTING PHYSICIAN: Dr. Rodríguez. REASON FOR CONSULTATION: Uncontrolled type 2 diabetes mellitus. HISTORY OF PRESENT ILLNESS: This is a 79-year-old female patient whose medical background is significant for the issue of type 2 diabetes mellitus, hypertension, and atrial fibrillation. The patient presented to the ER on the day of admission with worsening weakness, nausea and vomiting. It appears that this has been in the setting of worsening cognitive function as per her daughter with the aspect of excessive alcohol use. On arrival, the patient was found to have evidence of DKA with a blood glucose in excess of 900, anion gap of 33 and a pH of 7.0. Subsequently, she was managed with IV insulin and IV fluids and had gradually recovered from those issues. The patient describes that she medicates herself with Humalog insulin at a dose of 10 units before breakfast and lunch and 15 units before dinner as well as Tresiba 8 units in the evenings. When asked about her blood glucose values, she indicated that she monitors her blood glucose frequently, but that she fluctuates these values rather widely although she could not be more detailed about that. She indicated that she does have occasional issues with hypoglycemia. When asked about diabetic complications, she denied having ever been diagnosed with diabetic retinopathy, neuropathy, or nephropathy. She is not aware of issues pertaining to CAD. The patient is known to have hypertension and is supposedly maintained on lisinopril 10 mg daily and diltiazem 180 mg daily. REVIEW OF SYSTEMS: CONSTITUTIONAL: Fatigue, tiredness, but not fever or chills or body weight changes. HEENT: Negative for sore throat, sinus pain or ear drainage. [facility] [address] [place] [address] CONSULTATION Name: KIMI JO [facility] Room #: 206-P [facility] IN M.R.#: [id number] Admission: 02/15/20 Attend Phys: Chelsie Vyas MD Discharge: 02/17/20 Date of : 44 Report #: [id number] PULMONARY: Negative for shortness of breath, cough or hemoptysis. CARDIAC: Negative for chest pain, palpitations, syncope or presyncope. GASTROINTESTINAL: Noted for abdominal discomfort, nausea and vomiting on presentation, which have settled down at this point. NEUROLOGY: Negative for loss of consciousness, headaches or seizure activity. PSYCHIATRIC: Reportedly having issues with cognitive decline, the patient admits to excessive alcohol intake, but would not quantify that. Otherwise, review of systems noncontributory other than those mentioned in HPI. PAST MEDICAL HISTORY: 1. Type 2 diabetes mellitus. 2. Hypertension. 3. Atrial fibrillation. 4. Hypomagnesemia. 5. Asthma. 6. Anxiety. 7. Chronic back pain and spinal disease, degenerative disk disease. 8. Hyperparathyroidism, status post parathyroid surgery. 9. Glaucoma. 10. GERD. OUTPATIENT MEDICATIONS: Include: 1. Diltiazem 180 mg daily. 2. Pantoprazole 40 mg daily. 3. Tresiba insulin 8 units q.p.m. 4. Humalog insulin 10, 10, 15 units t.i.d. a.c. 5. Vitamin B12 1000 mcg daily. 6. Thiamine 100 mg daily. 7. Vitamin D3 1000 units daily. 8. Lisinopril 10 mg daily. 9. Aspirin 81 mg daily. 10. Wellbutrin XL 450 mg daily. 11. Simbrinza eyedrops t.i.d. 12. Fish oil 1000 mg daily. 13. Caltrate 600/vitamin D daily. 14. Plavix 75 mg daily. 15. Singulair 10 mg daily. ALLERGIES: CEFDINIR. FAMILY HISTORY: Noncontributory. SOCIAL HISTORY: The patient is an ex-smoker. Admits to excessive alcohol intake. Lives alone. PHYSICAL EXAMINATION: [facility] [address] [facility] [place] [address] CONSULTATION Name: KIMI JO [facility] Room #: 206-P DIS IN M.R.#: [id number] Admission: 02/15/20 Attend Phys: Chelsie Vyas MD Discharge: 02/17/20 Date of : 44 Report #: [id number] GENERAL: Pleasant female patient who is not in apparent pain or distress. VITAL SIGNS: Blood pressure is 181/58 mmHg, heart rate is 84 beats per minute, respiration 18 per minute, temperature 37 degrees Celsius. CONSTITUTIONAL: The patient is sitting upright in her reclining chair, appears relatively comfortable, not in pain or distress. HEENT: Anicteric sclerae. Intact extraocular motions. NECK: Supple, without JVD, carotid bruits or lymphadenopathy. I do not appreciate thyromegaly. CHEST: Noted for moderate entry bilaterally with scattered rales. No wheeze or crackles. HEART: Regular rate and rhythm without murmurs or gallops. ABDOMEN: Soft, lax. No tenderness or organomegaly. She has active bowel sounds. EXTREMITIES: Lower extremity exam is negative for ankle edema, skin breaks or ulcerations. NEUROLOGIC: Awake, alert and oriented to time, place and person. The remainder of her examination is nonfocal. PSYCHIATRY: Pleasant, interactive. She is slightly upset about the prospect of transferring to a psych facility, although she does not want to. LABORATORY RESULTS: Blood glucose on arrival was in excess of 500 over the past 24 hours that has hovered from 212 to 380 mg/dL. Otherwise, sodium 140, potassium 3.5, chloride 105, CO2 of 25. Anion gap 10; on arrival, her anion gap was 30. BUN 8, creatinine 0.8. Lipase 719, total bilirubin 0.7, calcium 8.6, phosphorus 2.0, magnesium 1.9, alkaline phosphatase 149, ALT 29, total protein 8.0, albumin 3.6, EGFR 70. Total CPK 99, troponin was negative. Alcohol was less than 10. INR 1.0. White blood count 7.7, hemoglobin 10.1, hematocrit 32.1, platelets 268. TSH 1.532. Hemoglobin A1c 8.6%. Vitamin D was 25.7. ASSESSMENT AND PLAN: 1. Type 2 diabetes mellitus. The patient describes chronic management with basal bolus insulin with a hallmark of minimal basal insulin intake and reported tendency towards hypoglycemia. I counseled the patient about the importance of achieving and maintaining adequate glycemic control. For starters, I would like to place the patient on a combination of Lantus insulin 18 units daily to be started now in addition to Humalog insulin coverage at 5 units per meal while supporting her with a Humalog supplemental scale low intensity. Blood glucose monitoring will be monitored a.c. and at bedtime to help adjust her insulin regimen as needed going forward. 2. Diabetic ketoacidosis. As noted above, the patient presented in diabetic ketoacidosis, but has resolved this issue following the appropriate management with IV insulin and IV fluids that she has received. 3. Hypertension. The patient's level of blood pressure control is marginal today. Antihypertensive regimen adjustments are as per the primary hospital team. [facility] [address] [place] [address] CONSULTATION Name: KIMI JO [facility] Room #: [address] [place] [address] [place] M.R.#: [id number] Admission: 02/15/20 Attend Phys: Chelsie Vyas MD Discharge: 02/17/20 Date of : 44 Report #: [id number] 4. Vitamin D deficiency. The patient has moderate vitamin D deficiency, she was counseled about the importance of maintaining adequate vitamin D intake and replenishment. She is to continue with the current regimen of 2000 units daily. I have reviewed the patient's clinical care notes, laboratory data, and other pertinent clinical information both past and present for over 35 minutes in addition to my encounter time with the patient. I certainly appreciate this consultation by Dr. Rodríguez. <ELECTRONICALLY SIGNED> By: Lisseth Espinoza MD 02/19/20 1154 [id number] 1340 Lisseth Espinoza MD /claudia
== END 2020-02-17 13:50 | disposition home health service (06) | DRG 637 ==
LOC: ER 23:14 → ICU 02-15 01:34 → EROBS 02-15 01:34 → 2N 02-15 01:34 → ICU 02-15 05:19 → 2N 02-16 02:14
PROVIDERS: Emergency Medicine; Hospitalist; Internal Medicine; Nurse Practitioner Family; ADMIT Internal Medicine; ATTEND Internal Medicine
DX: E11.10 Type 2 diabetes mellitus with ketoacidosis without coma (principal); G93.41 Metabolic encephalopathy; N17.0 Acute kidney failure with tubular necrosis; F10.99 Alcohol use, unspecified with unspecified alcohol-induced disorder; F32.9 Major depressive disorder, single episode, unspecified; E87.5 Hyperkalemia; I10 Essential (primary) hypertension; I48.91 Unspecified atrial fibrillation; F41.9 Anxiety disorder, unspecified; G89.29 Other chronic pain; M54.9 Dorsalgia, unspecified; K21.9 Gastro-esophageal reflux disease without esophagitis; J45.909 Unspecified asthma, uncomplicated; E83.42 Hypomagnesemia; D72.829 Elevated white blood cell count, unspecified; G47.00 Insomnia, unspecified; N39.41 Urge incontinence; Y90.9 Presence of alcohol in blood, level not specified; Z79.4 Long term (current) use of insulin; Z87.891 Personal history of nicotine dependence; Z88.8 Allergy status to other drugs, medicaments and biological substances; Z90.89 Acquired absence of other organs
CPT/HCPCS: 10078; 10081; 10203

== ENCOUNTER 2020-03-15 15:02 | Inpatient (IN) | payer OTHER ==
[~2020-03-15] VITALS: Ht 157.5 cm; Wt 57.9 kg
[2020-03-15] VITALS (18 sets, daily range): BP systolic 105–145; BP diastolic 19–58
[~2020-03-15 15:02] MED LIST changes: +LANTUS100 UNIT/M SUBQ; +NOVOLOG100 UNIT/1 SUBQ
[2020-03-15 15:33] LABS: HEMOGLOBIN 9.5 gm/dL (12.0-15.0); MCH 29.7 pg (26.0-34.0); MCHC 27.2 g/dL (28.0-37.0); MCV 109.1 fL (80.0-100.0); PLATELET COUNT 384 thou/uL (150-400); RBC 3.21 mil/uL (4.20-5.00); RDW 16.6 % (10.5-14.5); WBC 15.4 thou/uL (4.0-11.0)
[2020-03-15 15:48] LABS: BE(vivo) -28.9 mmol/L (-2 to +3); HCO3 3.1 mmol/L (22.0-26.0); PO2 140.7 mmHg (80.0-100.0); sO2 96.4 % (92.0-98.0)
[2020-03-15 15:49] LABS: PCO2 17.4 mmHg (35.0-45.0); pH 6.865 (7.360-7.450)
[2020-03-15 16:08] LABS: URINE BILIRUBIN NEGATIVE (Negative); URINE BLOOD NEGATIVE (Negative); URINE CLARITY CLEAR; URINE COLOR YELLOW; URINE GLUCOSE-RANDOM* 3+ (Negative); URINE KETONES 2+ (Negative); URINE LEUKOCYTES-REFLEX NEGATIVE (Negative); URINE NITRITE-REFLEX NEGATIVE (Negative); URINE PROTEIN (DIPSTICK) NEGATIVE (Negative); URINE UROBILINOGEN 0.2 E.U./dl (0.2-1.0)
[2020-03-15 16:09] LABS: ABSOLUTE NEUTROPHILS 11.1 thou/uL (1.4-8.2); ANISOCYTOSIS 1+; MACROCYTES 2+; PLATELET ESTIMATE NORMAL
[2020-03-15 16:20] LABS: AMP/METHAMP Negative (Negative); BARBITURATES Negative (Negative); BENZODIAZEPINES Negative (Negative); COCAINE Negative (Negative); METHADONE Negative (Negative); OPIATES Negative (Negative); PCP Negative (Negative)
[2020-03-15 16:22] LABS: ALBUMIN 2.9 g/dL (3.4-5.0); ANION GAP 32 mmol/L (7-16); BUN 28 mg/dL (7-18); CALCIUM 9.5 mg/dL (8.5-10.1); CHLORIDE 91 mmol/L (98-107); CREATININE 2.6 mg/dL (0.6-1.0); PHOSPHORUS 10.9 mg/dL (2.5-4.9); SODIUM 128 mmol/L (136-145)
[2020-03-15 16:25] LABS: CO2 < 5 mmol/L (21-32); POTASSIUM 8.3 mmol/L (3.5-5.1)
[2020-03-15 16:26] LABS: GLUCOSE 1158 mg/dL (74-106)
[2020-03-15 18:06] LABS: ALBUMIN 1.7 g/dL (3.4-5.0); MAGNESIUM 1.8 mg/dL (1.8-2.4); PHOSPHORUS 8.4 mg/dL (2.5-4.9)
[2020-03-15 18:10] LABS: POTASSIUM 6.2 mmol/L (3.5-5.1)
[2020-03-15 19:22] LABS: BE(vivo) -27.4 mmol/L (-2 to +3); HCO3 4.5 mmol/L (22.0-26.0); PCO2 25.1 mmHg (35.0-45.0); PO2 563.5 mmHg (80.0-100.0); sO2 99.8 % (92.0-98.0)
[2020-03-15 19:23] LABS: pH 6.872 (7.360-7.450)
[2020-03-15 23:19] LABS: ALBUMIN 2.3 g/dL (3.4-5.0); CALCIUM 8.3 mg/dL (8.5-10.1); CREATININE 2.2 mg/dL (0.6-1.0); MAGNESIUM 1.8 mg/dL (1.8-2.4); PHOSPHORUS 4.7 mg/dL (2.5-4.9)
[2020-03-15 23:20] LABS: POTASSIUM 3.6 mmol/L (3.5-5.1)
[2020-03-15 23:58] LABS: BE(vivo) -15.2 mmol/L (-2 to +3); HCO3 10.8 mmol/L (22.0-26.0); PCO2 25.9 mmHg (35.0-45.0); PO2 181.4 mmHg (80.0-100.0)
[2020-03-16] VITALS (79 sets, daily range): BP systolic 70–164; BP diastolic 28–64
[2020-03-16 00:02] LABS: pH 7.236 (7.360-7.450)
[2020-03-16 02:46] LABS: ALBUMIN 2.1 g/dL (3.4-5.0); CALCIUM 8.3 mg/dL (8.5-10.1); CREATININE 2.2 mg/dL (0.6-1.0); MAGNESIUM 1.6 mg/dL (1.8-2.4); PHOSPHORUS 3.6 mg/dL (2.5-4.9); POTASSIUM 3.3 mmol/L (3.5-5.1)
[2020-03-16 07:58] LABS: HEMATOCRIT 25.1 % (37.0-47.0); HEMOGLOBIN 8.1 gm/dL (12.0-15.0); MCH 29.5 pg (26.0-34.0); MCHC 32.1 g/dL (28.0-37.0); RBC 2.73 mil/uL (4.20-5.00); WBC 14.7 thou/uL (4.0-11.0)
[2020-03-16 08:07] LABS: MCV 91.8 fL (80.0-100.0); PLATELET COUNT 304 thou/uL (150-400)
[2020-03-16 08:08] LABS: ALBUMIN 2.1 g/dL (3.4-5.0); CREATININE 1.5 mg/dL (0.6-1.0); MAGNESIUM 2.1 mg/dL (1.8-2.4); PHOSPHORUS 2.8 mg/dL (2.5-4.9); POTASSIUM 3.7 mmol/L (3.5-5.1)
[2020-03-16 08:19] LABS: ALBUMIN 2.2 g/dL (3.4-5.0); CALCIUM 8.1 mg/dL (8.5-10.1); CREATININE 1.5 mg/dL (0.6-1.0); POTASSIUM 3.6 mmol/L (3.5-5.1); TOTAL BILIRUBIN 0.2 mg/dL (0.2-1.0); TOTAL PROTEIN 4.4 g/dL (6.4-8.2)
--- NOTE | 2020-03-16 08:19 | EKG ---
[facility] [place] [address] ELECTROCARDIOGRAM REPORT Name: KIMI JO [facility] Room #: 236-P ADM IN M.R.#: [id number] Admission: 03/15/20 Attend Phys: Iqra Lala Discharge: Date of : 44 Report #: [id number] THIS REPORT FOR: cc: SHANTI - Family physician unknown FAM - Family physician unknown Tay Schneider MD [facility] THIS REPORT FOR: //name// [facility] ED Test Date: 2020-03-15 Test Time: 16:57:41 Pat Name: KIMI JO Department: Room: [facility] Gender: F Pants Busheler: isai : 1940 Requested By: Galen Tapia Order Number: [id number] MD: Tay Schneider Measurements Intervals [place] Rate: 89 P: 75 NV: 191 QRS: -67 QRSD: 141 T: 98 QT: 438 QTc: 534 Interpretive Statements Sinus rhythm Left bundle branch block Compared to ECG 02/15/2020 01:55:57 Left bundle-branch block now present Sinus tachycardia no longer present Electronically Signed On 03-16-2020 8:19:08 CDT by Tay Schneider [email or web address] <ELECTRONICALLY SIGNED> By: Tay Schneider MD, [facility] 03/16/20 0819 1657 1657 Tay Schneider MD, [facility] /EPI
[2020-03-16 09:09] LABS: BE(vivo) 1.5 mmol/L (-2 to +3); HCO3 23.9 mmol/L (22.0-26.0); PO2 141.3 mmHg (80.0-100.0); pH 7.534 (7.360-7.450); sO2 99.1 % (92.0-98.0)
[2020-03-16 10:46] LABS: ABSOLUTE NEUTROPHILS 12.5 thou/uL (1.4-8.2); ANISOCYTOSIS SLIGHT; ATYPICAL LYMPHS 1 %; BURR CELLS OCCASIONAL
[2020-03-17] VITALS (83 sets, daily range): BP systolic 90–191; BP diastolic 40–131
[2020-03-17 04:28] LABS: BE(vivo) 4.4 mmol/L (-2 to +3); PCO2 32.5 mmHg (35.0-45.0); PO2 130.9 mmHg (80.0-100.0); pH 7.538 (7.360-7.450); sO2 98.9 % (92.0-98.0)
[2020-03-17 05:52] LABS: ALBUMIN 1.7 g/dL (3.4-5.0); CALCIUM 7.1 mg/dL (8.5-10.1); TOTAL BILIRUBIN 0.3 mg/dL (0.2-1.0); TOTAL PROTEIN 4.3 g/dL (6.4-8.2)
--- NOTE | 2020-03-17 11:20 | HC ---
[facility] [place] [address] CONSULTATION Name: KIMI JO [facility] Room #: [facility] IN M.R.#: [id number] Admission: 03/15/20 Attend Phys: Iqra Lala Discharge: Date of : 42 Report #: [id number] THIS REPORT FOR: cc: SHANTI - Family physician unknown SHANTI - Family physician unknown Lisseth Espinoza MD ~ CC: SHANTI Lala DATE OF SERVICE: 03/16/2020 ENDOCRINE CONSULTATION NOTE CONSULTING PHYSICIAN: Dr. Lala. REASON FOR CONSULTATION: DKA, type 2 diabetes mellitus. HISTORY OF PRESENT ILLNESS: This is a 79-year-old female patient whose medical background is significant for multiple issues including type 2 diabetes mellitus, hypertension as well as history of parathyroid surgery who presented to the ER following her sister calling an EMS due to issues and concerns over severe hyperglycemia and mental status changes. On arrival, the patient was found to be in diabetic ketoacidosis as well as respiratory failure, which forced an airway intubation and the patient was placed on mechanical ventilation. The patient at this point is not available for a detailed history. REVIEW OF SYSTEMS: Cannot obtain due to the patient's intubated and sedated state, but as per records, noted for fatigue, tiredness, lethargy, mental status changes and confusion. PAST MEDICAL HISTORY: Noted for type 2 diabetes mellitus, hypertension, GERD, anxiety, history of back pain, history of a parathyroid surgery, seasonal allergies, history of alcohol abuse. OUTPATIENT MEDICATIONS: Include Wellbutrin 450 mg daily, Lumigan ophthalmic drops at bedtime, fish oil daily, Caltrate with vitamin D daily, Plavix 75 mg daily, Singulair 10 mg daily, NovoLog insulin 5 units t.i.d. a.c., Lantus insulin 18 units daily, aspirin 81 mg daily, lisinopril 20 mg daily, vitamin D 1000 units daily, thiamine 100 mg daily, cyanocobalamin 1000 mg daily, pantoprazole 40 mg daily, diltiazem 180 mg daily. ALLERGIES: OMNICEF. FAMILY HISTORY: Noncontributory. SOCIAL HISTORY: There is a history of alcohol use, but not tobacco use. [facility] [address] [place] [address] CONSULTATION Name: KIMI JO [facility] Room #: 246-[address] [facility] IN [facility].#: [id number] Admission: 03/15/20 Attend Phys: Iqra Lala Discharge: Date of : 42 Report #: [id number] PHYSICAL EXAMINATION: GENERAL: Elderly female patient who is currently placed on mechanical ventilation and is sedated. VITAL SIGNS: Blood pressure 129/____ mmHg, heart rate is 103 beats per minute, respirations 17 per minute, temperature 37.1 degrees Celsius. CONSTITUTIONAL: The patient is lying supine in bed, intubated, does not appear to be in pain or distress. HEENT: Anicteric sclerae. NECK: Supple, no thyromegaly. CHEST: Noted for limited air entry bilaterally with scattered rales, but no crackles. HEART: Regular rate and rhythm without murmurs or gallops. ABDOMEN: Soft, lax. No guarding. Active bowel sounds. EXTREMITIES: Lower extremity exam is negative for ankle edema. The patient has faint pedal pulses. NEUROLOGIC: Sedated. PSYCHIATRIC: Sedated. LABORATORY RESULTS: Blood glucose on arrival was in excess of 500, most recently at 153 mg/dL. Otherwise, sodium 145, potassium 3.7, chloride 107, CO2 of 23, anion gap 15, on arrival was as high as 32. BUN 20, creatinine 1.5, on arrival was 2.6. AST 53, lipase is 719. On 02/14/2020, total bilirubin is negative, ALT 20, total protein 4.4, albumin 2.1, EGFR 34. Lactic acid 7.1, started out at 12.9 on arrival. Troponin is negative. ____ White blood count 14.7, hemoglobin 8.1, hematocrit 25.1, platelets 304, hemoglobin A1c on 02/17/2020 was 8.5. The patient has a consistent baseline of 8.2-8.6 percent. ASSESSMENT AND PLAN: 1. Diabetic ketoacidosis. The patient presented in a clinical state and with laboratory data that are supportive of the notion of diabetic ketoacidosis. The patient was managed appropriately with aggressive IV fluid support and intravenous insulin. The patient has now resolved metabolic changes referenced earlier and appears to have resolved her issues with diabetic ketoacidosis. Given the patient's overall guarded clinical state and the current need for mechanical ventilation, I would support maintaining IV insulin therapy pending the stabilization of her clinical outlook and initiating p.o. intake. 2. Type 2 diabetes mellitus. The patient has an uncontrolled baseline, but not by far with a hemoglobin A1c baseline of 8.5%. I would be interested once a detailed history is feasible to understand if there were any therapeutic gaps prior to this presentation. In the immediate setting and given the patient's overall mechanically ventilated state and lack of consistent p.o. intake, I would like to maintain intravenous insulin therapy for a more effective and flexible method of glycemic control. My blood glucose target would be 140-180 mg/dL. Continue to manage IV insulin as per the [facility] IV insulin protocol and when stable, we will transition the patient again to [address] [place] [address] CONSULTATION Name: KIMI JO [facility] Room #: 246-P [facility] IN M.R.#: [id number] Admission: 03/15/20 Attend Phys: Iqra Lala Discharge: Date of : 42 Report #: [id number] subcutaneous insulin therapy. 3. Hypertension. The patient is known to have hypertension and is currently stable with the current plan of management. Continue with the same and adjust as clinically indicated. I have reviewed the patient's clinical care notes, laboratory data, and other pertinent clinical information for over 35 minutes in addition to my encounter time with the patient. I appreciate this consultation by Dr. Lala. <ELECTRONICALLY SIGNED> By: Lisseth Espinoza MD 03/17/20 1120 1152 1256 Lisseth Espinoza MD /nt
[2020-03-17 15:58] LABS: ABSOLUTE NEUTROPHILS 7.5 thou/uL (1.4-8.2); BASOPHILS 0.6 % (0.0-2.0); EOSINOPHILS 0.3 % (0.0-3.0); HEMATOCRIT 25.3 % (37.0-47.0); HEMOGLOBIN 8.6 gm/dL (12.0-15.0); LYMPHOCYTES 19.5 % (24.0-44.0); MCH 30.2 pg (26.0-34.0); MCHC 34.1 g/dL (28.0-37.0); MCV 88.5 fL (80.0-100.0); MONOCYTES 4.1 % (1.0-8.0); POLYS 75.5 % (36.0-66.0); RBC 2.86 mil/uL (4.20-5.00); RDW 14.4 % (10.5-14.5); WBC 9.9 thou/uL (4.0-11.0)
[2020-03-17 16:04] LABS: PLATELET COUNT 192 thou/uL (150-400)
[2020-03-17 16:18] LABS: CALCIUM 7.4 mg/dL (8.5-10.1); CREATININE 0.9 mg/dL (0.6-1.0); POTASSIUM 3.6 mmol/L (3.5-5.1)
[2020-03-17 16:25] LABS: ALBUMIN 1.8 g/dL (3.4-5.0); TOTAL BILIRUBIN 0.4 mg/dL (0.2-1.0); TOTAL PROTEIN 4.4 g/dL (6.4-8.2)
[2020-03-18] VITALS (23 sets, daily range): BP systolic 79–200; BP diastolic 36–122
[2020-03-18 04:43] LABS: BE(vivo) 2.7 mmol/L (-2 to +3); HCO3 27.6 mmol/L (22.0-26.0); PCO2 44.4 mmHg (35.0-45.0); PO2 66.9 mmHg (80.0-100.0); pH 7.412 (7.360-7.450); sO2 93.4 % (92.0-98.0)
[2020-03-18 05:38] LABS: ABSOLUTE NEUTROPHILS 5.5 thou/uL (1.4-8.2); BASOPHILS 0.4 % (0.0-2.0); EOSINOPHILS 0.8 % (0.0-3.0); HEMATOCRIT 24.9 % (37.0-47.0); HEMOGLOBIN 8.2 gm/dL (12.0-15.0); LYMPHOCYTES 25.9 % (24.0-44.0); MCH 29.8 pg (26.0-34.0); MCHC 33.1 g/dL (28.0-37.0); MCV 89.8 fL (80.0-100.0); MONOCYTES 3.5 % (1.0-8.0); PLATELET COUNT 167 thou/uL (150-400); POLYS 69.4 % (36.0-66.0); RBC 2.77 mil/uL (4.20-5.00); RDW 14.9 % (10.5-14.5); WBC 7.9 thou/uL (4.0-11.0)
[2020-03-19 06:16] VITALS: BP 138/49
[2020-03-19 08:30] VITALS: BP 135/51
[2020-03-19 16:25] VITALS: BP 170/71
[2020-03-19 20:00] VITALS: BP 142/83
[2020-03-20 05:47] LABS: HEMATOCRIT 22.8 % (37.0-47.0); HEMOGLOBIN 7.7 gm/dL (12.0-15.0); MCHC 33.8 g/dL (28.0-37.0); MCV 88.6 fL (80.0-100.0); RBC 2.57 mil/uL (4.20-5.00); RDW 14.2 % (10.5-14.5); WBC 5.7 thou/uL (4.0-11.0)
[2020-03-20 06:00] LABS: ALBUMIN 1.8 g/dL (3.4-5.0); CALCIUM 8.4 mg/dL (8.5-10.1); CREATININE 0.7 mg/dL (0.6-1.0); TOTAL BILIRUBIN 0.4 mg/dL (0.2-1.0); TOTAL PROTEIN 4.6 g/dL (6.4-8.2)
[2020-03-20 06:08] LABS: POTASSIUM 2.9 mmol/L (3.5-5.1)
[2020-03-20 08:32] VITALS: BP 144/67
[2020-03-20 13:13] VITALS: BP 127/80; BP 147/72
[2020-03-20 16:49] VITALS: BP 170/80
[2020-03-20 20:49] VITALS: BP 142/69
[2020-03-21 05:28] LABS: HEMATOCRIT 24.5 % (37.0-47.0); HEMOGLOBIN 8.1 gm/dL (12.0-15.0); MCH 29.5 pg (26.0-34.0); MCHC 33.1 g/dL (28.0-37.0); RBC 2.75 mil/uL (4.20-5.00); RDW 14.2 % (10.5-14.5); WBC 4.5 thou/uL (4.0-11.0)
[2020-03-21 05:36] LABS: ALBUMIN 1.8 g/dL (3.4-5.0); CALCIUM 8.5 mg/dL (8.5-10.1); CREATININE 0.7 mg/dL (0.6-1.0); MAGNESIUM 1.7 mg/dL (1.8-2.4); PHOSPHORUS 3.3 mg/dL (2.5-4.9); POTASSIUM 4.8 mmol/L (3.5-5.1)
[2020-03-21 07:41] VITALS: BP 143/79
--- NOTE | 2020-03-21 10:43 | P ---
[facility] [place] [address] PROCEDURE REPORT Name: KIMI JO [facility] Room #: 447-P ADM IN M.R.#: [id number] Admission: 03/15/20 Attend Phys: Iqra Lala Discharge: Date of : 42 Report #: [id number] THIS REPORT FOR: cc: FAM - Family physician unknown FAM - Family physician unknown Leonardo Paez MD ~ CC: [facility] unknown Iqra Bahena MD DATE OF SERVICE: 03/20/2020 PROCEDURE PERFORMED: Upper endoscopy with biopsies. HISTORY OF PRESENT ILLNESS: The patient is a 79-year-old female who was admitted on 03/15/2020, in DKA and respiratory failure, was admitted to the ICU and intubated, extubated on 03/17/2020. The patient has had a poor appetite in general. Stools are Hemoccult positive. She has had a drop in her hemoglobin. She denies any obvious bright red blood per rectum or melena. She has been on aspirin and Plavix. She is unsure why in the past. She has been on Protonix here in the hospital. She denies any nausea, vomiting or dysphagia. She has had mild weight loss recently. She has had a previous history of alcohol abuse, reportedly stopped in January. No previous history of upper endoscopy and possibly colonoscopy approximately 5 years ago. Her hemoglobin is 7.7 today; this is down from 8.2 two days ago; she was 9.5 on admission. Plan is for upper endoscopy. DESCRIPTION OF PROCEDURE: The risks and benefits of the procedure were explained to the patient, those risks including but not limited to bleeding, perforation and the risk of sedation. She understood these risks and gave informed consent. Sedation was given using propofol per anesthesia. Next, using a standard Olympus upper endoscope, the scope was placed in the patient's mouth and advanced under direct vision through the esophagus, stomach and into the second portion of the duodenum. The larynx was normal in appearance. The esophagus was normal throughout. GE junction was normal. Upon entering the stomach, a small hiatal hernia was noted. There was a moderate diffuse gastritis throughout the stomach with multiple small erosions. No evidence of blood or bleeding. Biopsies were obtained to rule out H. pylori. The pylorus was normal and patent. The duodenal bulb, first and second portion were all normal. No evidence of bleeding. The scope was then withdrawn and the procedure terminated. The patient tolerated the procedure well. IMPRESSION: 1. Moderate diffuse gastritis with multiple small erosions. No evidence of bleeding on exam today. 2. Small hiatal hernia. [address] [address] PROCEDURE REPORT Name: KIMI JO [facility] Room #: 447-P [facility] IN M.R.#: [id number] Admission: 03/15/20 Attend Phys: Iqra Lala Discharge: Date of : 42 Report #: [id number] 3. Otherwise, normal upper endoscopy. RECOMMENDATIONS: 1. Await biopsy results. 2. Continue PPI therapy. 3. Continue to hold anticoagulation therapy and monitor hemoglobin. Thank you for allowing me to participate in her care. <ELECTRONICALLY SIGNED> By: Leonardo Paez MD 03/21/20 1043 0930 1255 Leonardo Paez MD /nt
[2020-03-21 14:21] VITALS: BP 139/66
[2020-03-21 20:00] VITALS: BP 127/62
[2020-03-22 07:55] VITALS: BP 128/63
[2020-03-22] MEDS ORDERED: LANTUS SUBQ (09:24)
[2020-03-22] MEDS ORDERED: HUMALOG100 UNIT/1 SUBQ (09:24)
[2020-03-22] MEDS ORDERED: FREESTYLE LIBR1 EAC2 MISCELL (09:29)
[2020-03-23 07:42] VITALS: BP 144/80
== END 2020-03-23 15:43 | DRG 208 ==
LOC: ER 15:02 → EROBS 17:27 → ICU 17:27 → 2N 03-18 18:45 → 4S 03-18 23:55
PROVIDERS: Emergency Medicine; Nurse Practitioner; Pediatrics; ADMIT Hospitalist; ATTEND Hospitalist
PROC: 5A1945Z Respiratory Ventilation, 24-96 Consecutive Hours (ICD-10-PCS; principal; 2020-03-15)
PROC: 0BH18EZ Insertion of Endotracheal Airway into Trachea, Via Natural or Artificial Opening Endoscopic (ICD-10-PCS; principal; 2020-03-15)
PROC: 02HV33Z Insertion of Infusion Device into Superior Vena Cava, Percutaneous Approach (ICD-10-PCS; principal; 2020-03-15)
PROC: 0DB68ZX Excision of Stomach, Via Natural or Artificial Opening Endoscopic, Diagnostic (ICD-10-PCS; 2020-03-20)
DX: J96.01 Acute respiratory failure with hypoxia (principal); E10.10 Type 1 diabetes mellitus with ketoacidosis without coma; G93.41 Metabolic encephalopathy; N17.9 Acute kidney failure, unspecified; R57.9 Shock, unspecified; E87.1 Hypo-osmolality and hyponatremia; E46 Unspecified protein-calorie malnutrition; I10 Essential (primary) hypertension; D64.9 Anemia, unspecified; E87.5 Hyperkalemia; T68.XXXA Hypothermia, initial encounter; K21.9 Gastro-esophageal reflux disease without esophagitis; F41.9 Anxiety disorder, unspecified; J30.2 Other seasonal allergic rhinitis; K44.9 Diaphragmatic hernia without obstruction or gangrene; Z20.828 Contact with and (suspected) exposure to other viral communicable diseases; K25.9 Gastric ulcer, unspecified as acute or chronic, without hemorrhage or perforation; E86.0 Dehydration; Z88.8 Allergy status to other drugs, medicaments and biological substances; Z98.1 Arthrodesis status; Z79.4 Long term (current) use of insulin; Z87.891 Personal history of nicotine dependence; Z79.899 Other long term (current) drug therapy; Z79.82 Long term (current) use of aspirin; Z68.23 Body mass index [BMI] 23.0-23.9, adult; Z91.14 Patient's other noncompliance with medication regimen; K29.70 Gastritis, unspecified, without bleeding
CPT/HCPCS: 10078; 10102; 10203; 62110; 62900

== ENCOUNTER 2020-03-31 13:19 | Inpatient (IN) | payer OTHER ==
[~2020-03-31] VITALS: Ht 147.3 cm; Wt 47.2 kg
[2020-03-31] VITALS (10 sets, daily range): BP systolic 94–139; BP diastolic 31–71
[~2020-03-31 13:19] MED LIST changes: +FREESTYLE LIBR1 EAC2 MISCELL
[2020-03-31 14:08] LABS: HEMATOCRIT 31.9 % (37.0-47.0); HEMOGLOBIN 9.6 gm/dL (12.0-15.0); MCH 29.8 pg (26.0-34.0); MCHC 30.2 g/dL (28.0-37.0); MCV 98.9 fL (80.0-100.0); PLATELET COUNT 411 thou/uL (150-400); RBC 3.23 mil/uL (4.20-5.00); RDW 16.8 % (10.5-14.5); WBC 11.3 thou/uL (4.0-11.0)
[2020-03-31 14:34] LABS: ABSOLUTE NEUTROPHILS 9.8 thou/uL (1.4-8.2); ANISOCYTOSIS 1+; POLYCHROMASIA OCCASIONAL
[2020-03-31 14:36] LABS: ANION GAP 30 mmol/L (7-16); BUN 20 mg/dL (7-18); CALCIUM 9.8 mg/dL (8.5-10.1); CHLORIDE 96 mmol/L (98-107); CREATININE 1.5 mg/dL (0.6-1.0); LIPASE 342 U/L (73-393); POTASSIUM 5.8 mmol/L (3.5-5.1); SGOT 17 U/L (15-37); SGPT 17 U/L (30-65); SODIUM 135 mmol/L (136-145); TOTAL BILIRUBIN 0.8 mg/dL (0.2-1.0); TOTAL PROTEIN 6.1 g/dL (6.4-8.2); TROPONIN-I <0.06 ng/mL (<0.06)
[2020-03-31 14:40] LABS: CO2 9 mmol/L (21-32)
[2020-03-31 14:41] LABS: GLUCOSE 829 mg/dL (74-106)
[2020-03-31 15:33] LABS: URINE BILIRUBIN NEGATIVE (Negative); URINE BLOOD NEGATIVE (Negative); URINE CLARITY CLEAR; URINE COLOR YELLOW; URINE GLUCOSE-RANDOM* 3+ (Negative); URINE KETONES 3+ (Negative); URINE LEUKOCYTES-REFLEX NEGATIVE (Negative); URINE NITRITE-REFLEX NEGATIVE (Negative); URINE PROTEIN (DIPSTICK) NEGATIVE (Negative); URINE SPECIFIC GRAVITY 1.015 (1.005-1.035); URINE UROBILINOGEN 0.2 E.U./dl (0.2-1.0)
[2020-03-31 15:34] LABS: HCO3 5.6 mmol/L (22.0-26.0); PCO2 17.9 mmHg (35.0-45.0); pH 7.112 (7.360-7.450); sO2 95.7 % (92.0-98.0)
[2020-03-31 17:09] LABS: ABSOLUTE NEUTROPHILS 12.5 thou/uL (1.4-8.2); BASOPHILS 0.2 % (0.0-2.0); HEMATOCRIT 27.9 % (37.0-47.0); HEMOGLOBIN 8.5 gm/dL (12.0-15.0); LYMPHOCYTES 4.1 % (24.0-44.0); MCH 29.8 pg (26.0-34.0); MCHC 30.4 g/dL (28.0-37.0); MCV 97.9 fL (80.0-100.0); MONOCYTES 3.7 % (1.0-8.0); PLATELET COUNT 363 thou/uL (150-400); RBC 2.85 mil/uL (4.20-5.00); RDW 16.7 % (10.5-14.5); WBC 13.6 thou/uL (4.0-11.0)
[2020-03-31 18:22] LABS: CREATININE 1.1 mg/dL (0.6-1.0); MAGNESIUM 1.5 mg/dL (1.8-2.4); PHOSPHORUS 2.3 mg/dL (2.5-4.9); TOTAL BILIRUBIN 0.5 mg/dL (0.2-1.0); TOTAL PROTEIN 4.6 g/dL (6.4-8.2)
[2020-03-31 18:27] LABS: POTASSIUM 3.6 mmol/L (3.5-5.1)
[2020-03-31 18:28] LABS: CALCIUM 7.1 mg/dL (8.5-10.1)
[2020-03-31 23:13] LABS: ALBUMIN 2.5 g/dL (3.4-5.0); CALCIUM 8.5 mg/dL (8.5-10.1); CREATININE 1.1 mg/dL (0.6-1.0); MAGNESIUM 1.7 mg/dL (1.8-2.4); PHOSPHORUS 1.2 mg/dL (2.5-4.9); POTASSIUM 3.5 mmol/L (3.5-5.1)
[2020-04-01] VITALS (34 sets, daily range): BP systolic 96–177; BP diastolic 34–71
--- NOTE | 2020-04-01 00:43 | NUR ---
This RN assumed care of the patient 03/31/20 at around 2200. Patient currently on DKA protocol. Patient currently on insulin gtt, 1/2 NS with 20meQ KCl, and is receiving replacement Mg. Anion gap closed 03/31/20 at 2252. Hourly blood glucose checks. Patient remains stable.
[2020-04-01 03:23] LABS: HEMATOCRIT 27.3 % (37.0-47.0); HEMOGLOBIN 8.7 gm/dL (12.0-15.0); MCH 29.2 pg (26.0-34.0); MCHC 31.9 g/dL (28.0-37.0); PLATELET COUNT 360 thou/uL (150-400); RBC 2.98 mil/uL (4.20-5.00); RDW 15.5 % (10.5-14.5); WBC 15.1 thou/uL (4.0-11.0)
[2020-04-01 03:30] LABS: CALCIUM 8.4 mg/dL (8.5-10.1); CREATININE 1.2 mg/dL (0.6-1.0); POTASSIUM 4.5 mmol/L (3.5-5.1)
[2020-04-01 03:33] LABS: ALBUMIN 2.4 g/dL (3.4-5.0); PHOSPHORUS 2.7 mg/dL (2.5-4.9)
[2020-04-01 03:34] LABS: MCV 91.7 fL (80.0-100.0)
--- NOTE | 2020-04-01 06:26 | NUR ---
Pt remains on D5 .45NS with 20meQ KCl and 0.5 units of insulin. Blood sugars have been in the 150-200 range the past 4 hours. Pt producing adaquate urine, remaining alert and oriented and vital signs stable. Anion gap closed and lactic was WNL. There were 2 periods throughout the night where patient remained in a deep sleep and her oxygen saturation dropped to 77%. Upon arrousing, patients saturation went up to the upper 90's.
--- NOTE | 2020-04-01 06:45 | NUR ---
This RN spoke to Jasson, son, regarding patients status at 0640 this morning. Discussed visiting policy and hours and verified contact information. Answered all son's questions.
--- NOTE | 2020-04-01 08:44 | EKG ---
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 : 1940 Requested By: Gaby Nunes Order Number: [id number] MD: Corky Bravo Measurements Intervals [place] Rate: 99 P: 71 IN: 157 QRS: -43 QRSD: 112 T: 91 QT: 366 QTc: 470 Interpretive Statements Sinus rhythm Borderline IVCD with LAD Anteroseptal infarct, old Nonspecific repol abnormality, lateral leads Compared to ECG 03/15/2020 16:57:41 Early repolarization now present Electronically Signed On 04-01-2020 8:44:34 CDT by Corky Bravo [email or web address] <ELECTRONICALLY SIGNED> By: Corky Bravo MD, FAC 04/01/20 0844 1348 1348 Corky Bravo MD, FAC /EPI
[2020-04-01 09:45] LABS: ABSOLUTE NEUTROPHILS 12.5 thou/uL (1.4-8.2)
[2020-04-01 09:46] LABS: ANISOCYTOSIS 1+
[2020-04-01 11:06] LABS: CALCIUM 8.6 mg/dL (8.5-10.1); CREATININE 1.2 mg/dL (0.6-1.0); POTASSIUM 3.8 mmol/L (3.5-5.1)
[2020-04-01 12:28] LABS: CHOLESTEROL 218 mg/dL (<200); HDL CHOLESTEROL 76 mg/dL (>40); LDL CHOLESTEROL 118 mg/dL (<100); TC:HDL 2.9 Ratio (Not establshd); TRIGLYCERIDE 124 mg/dL (<150); VLDL 25 mg/dL (<40)
--- NOTE | 2020-04-01 13:57 | NUR ---
ASSUMED CARE AT SHIFT CHANGE, ALERT AND ORIENTED X4 AND FORGETFUL. REMAINS ON INSULIN DRIP AND WILL DISCONTINUE THE DRIP IN 10 MINUTES. VS CHARTED, AND AFEBRILE. SR ON THE MONITOR. ON CLEAR LIQUID DIET AND PATIENT TOLERATED. AND WILL CONTINUE WITH POC.
--- NOTE | 2020-04-01 14:56 | NUR ---
chart review. pt had many visit rt some problems with dm. unable to visit with pt. cm spoke with son emile via phone . he reported she just left [facility] on sun she called and was wanting to come home and facility was wanting her to stay. we still trying to get her into half-way. looking into medicaid already. she lives in apartment 2nd floor elevator, 20 steps or so. she has elevator. she was telling me she was checking her bs then aunt called said you need to go check on your mom and then bs high and one day home and back to hospital we go. noted in chart last hospital stay she went to [facility]. had hh but not make visit yet. had hh in past with advanced. cm education that she might need skilled again or she might need to stay with him or sister, so she would have more education on her medication, diet, and dm support in home while family checking into half-way for her.
--- NOTE | 2020-04-01 15:40 | NUR ---
FAXED REFERRAL TO [facility] FOR [facility]ED STAY RECEIVED CONFIRMATION AND LEFT MSG WITH BENI IN ADM. DP TO FOLLOW.
--- NOTE | 2020-04-01 17:57 | NUR ---
PT. WITH FAMILY MEMBER AT BEDSIDE,IN [facility]. CIVID TEST TO BE DONE ONCE KIT IS OBTAINED FROM LAB. PT. DENIES ANY N+V, no emesis. PT. DENIES PAIN. IV FLUSHES WELL NO SIGN'S OF INFILTRATION AT SITE. STILL WAITING FOR CT SCAN PENDING WELL. VITAL SIGN'S STABLE. DENIES ANY SOB
--- NOTE | 2020-04-02 04:50 | NUR ---
Assumed pt care at 1900. A/OX4 w/forgetfulness noted,pt needs reminders to call for help before getting OOB. Denies pain on assessment,VSS.No N/V. Snacks offered to pt but only wanted ice. NSR on telemetry. Fall precautions in place resting w/o any distress noted. Will continue to monitor pt.
[2020-04-02 05:57] LABS: ABSOLUTE NEUTROPHILS 4.9 thou/uL (1.4-8.2); BASOPHILS 0.4 % (0.0-2.0); EOSINOPHILS 1.5 % (0.0-3.0); HEMATOCRIT 25.2 % (37.0-47.0); HEMOGLOBIN 8.1 gm/dL (12.0-15.0); LYMPHOCYTES 32.2 % (24.0-44.0); MCH 29.2 pg (26.0-34.0); MCHC 32.3 g/dL (28.0-37.0); MCV 90.5 fL (80.0-100.0); MONOCYTES 4.8 % (1.0-8.0); PLATELET COUNT 297 thou/uL (150-400); POLYS 61.1 % (36.0-66.0); RBC 2.79 mil/uL (4.20-5.00); RDW 15.4 % (10.5-14.5)
[2020-04-02 06:06] LABS: GLYCOHEMOGLOBIN (HGB A1C) 8.4 % (4.8-5.6)
[2020-04-02 06:16] LABS: ALBUMIN 2.2 g/dL (3.4-5.0); CALCIUM 8.5 mg/dL (8.5-10.1); CREATININE 0.7 mg/dL (0.6-1.0); POTASSIUM 3.9 mmol/L (3.5-5.1); TOTAL BILIRUBIN 0.4 mg/dL (0.2-1.0)
[2020-04-02 07:07] VITALS: BP 159/64
--- NOTE | 2020-04-02 10:28 | NUR ---
ASSUMED CARE OF PATIENT AT SHIFT CHANGE. ASSESSMENT CHARTED. FSBS CRITICALLY LOW THIS AM; STABLE NOW AT 146. LISPRO HELD THIS AM PATIENT HAD A SMALL AMOUNT OF CREAM OF WHEAT ONLY. VSS. PATIENT IS A&OX4 AND STATES NEEDING TO TALK TO SOMEONE ABOUT FINDING A FACILITY TO GO TO SINCE SHE AMA'D AT LAST ONE. REPOSITIONS SELF, FALL CONTRACT SIGNED TODAY. CT OF HEAD DONE THIS AM; AWAITING RESULTS. VOICES NO OTHER NEEDS AT THIS TIME. FALL PRECAUTIONS IN PLACE. WILL CONTINUE TO MONITOR
--- NOTE | 2020-04-02 12:36 | HC ---
[facility] [place] [place] [address] CONSULTATION Name: KIMI JO [facility] Room #: 452-P ADM IN M.R.#: [id number] Admission: 03/31/20 Attend Phys: Chelsie Vyas MD Discharge: Date of : 42 Report #: [id number] THIS REPORT FOR: cc: Galen Bahena MD,Lisseth Terry MD, MD ~ CC: Galen Vyas DATE OF SERVICE: 04/01/2020 ENDOCRINE CONSULTATION NOTE CONSULTING PHYSICIAN: Dr. Vyas. REASON FOR CONSULTATION: DKA, uncontrolled type 2 diabetes mellitus. HISTORY OF PRESENT ILLNESS: This is a 79-year-old female patient whose medical background is significant for insulin-dependent diabetes mellitus, labeled as type 2 with recurrent presentations with uncontrolled hyperglycemia and DKA including a week ago, who presented to the ER with altered mental status and was found to be in diabetic ketoacidosis. Subsequently, she was admitted to the ICU for further care and monitoring. The patient has a longstanding history of diabetes mellitus and was admitted about a week ago under conditions of severe DKA, requiring intubation. She is supposed to be on a regimen of Lantus insulin 12 units daily in addition to Humalog insulin 5 units t.i.d. before meals. When questioned about whether or not she has actually been taking her insulin as advised, the patient replied that she is unsure. There have certainly been concerns about compliance and insulin intake consistency in the past. The patient is known to have glaucoma, possible diabetic retinopathy, but not extensive issues with diabetic neuropathy. She is also known to have difficulties with alcohol abuse over shadowing her compliance and recurrent admissions. She has had parathyroid surgery in the past. REVIEW OF SYSTEMS: CONSTITUTIONAL: Fatigue, tiredness, but not fever or chills or body weight changes. HEENT: Negative for sore throat, sinus pain, ear drainage. PULMONARY: Occasional shortness of breath and cough, but no hemoptysis. CARDIAC: Negative for chest pain, palpitations, syncope or presyncope. GASTROINTESTINAL: Noted for abdominal discomfort, nausea, but no vomiting. NEUROLOGY: Negative for loss of consciousness, seizure activity. DERMATOLOGY: Negative for rash, discoloration, or ulceration. Otherwise, [address] [address] CONSULTATION Name: KIMI JO [facility] Room #: 452-P [facility] IN M.R.#: [id number] Admission: 03/31/20 Attend Phys: Chelsie Vyas MD Discharge: Date of : 42 Report #: [id number] review of systems is noncontributory other than those mentioned in HPI. PAST MEDICAL HISTORY: 1. Insulin-dependent diabetes mellitus with multiple difficulties pertaining to diabetic ketoacidosis episodes including about a week ago. 2. History of parathyroid surgery. 3. Alcohol abuse. 4. History of degenerative disk disease with history of back surgery. 5. Hypertension. 6. Gastroesophageal reflux disease. 7. Glaucoma. OUTPATIENT MEDICATIONS: Include Cardizem CD 180 mg daily, pantoprazole 40 mg daily, Humalog insulin 5 units t.i.d. before meals, vitamin B12 1000 mcg daily, thiamine 100 mg daily, vitamin D3 1000 units daily, Lantus insulin 12 units at bedtime, Humalog insulin 5 units t.i.d. before meals, Plavix 75 mg daily, Singulair 10 mg daily, Lumigan 0.01% apply to eyes at bedtime. ALLERGIES: OMNICEF. FAMILY HISTORY: Noncontributory. SOCIAL HISTORY: She is an ex-smoker. She lives by herself. There is a history of heavy alcohol use. PHYSICAL EXAMINATION: GENERAL: female patient sitting upright in her chair, appears comfortable, not in apparent distress, but appears irritated. VITAL SIGNS: Blood pressure is 103/45 mmHg, heart rate is 79 beats per minute, respiration 20 per minute, temperature 36.2 degrees Celsius. CONSTITUTIONAL: The patient is sitting upright in her reclining chair, does not appear to be in pain or distress. HEENT: Anicteric sclerae. Intact extraocular motions. NECK: Supple, without carotid bruits or thyromegaly. CHEST: Noted for moderate entry bilaterally with scattered rales. No wheeze or crackles. HEART: Regular rate and rhythm without murmurs or gallops. ABDOMEN: Soft, lax. No guarding. Active bowel sounds. EXTREMITIES: Lower extremity exam is negative for ankle edema, skin breaks, ulcerations. Pedal pulses are appreciated. NEUROLOGIC: Awake, alert and oriented to time, place and person. The remainder of her examination is nonfocal. PSYCHIATRIC: Pointed mood and affect defensive before I managed to ask any questions, she forbade any conversations to be held about her alcohol use, but otherwise had normal thought process. [facility] [address] [place] [address] CONSULTATION Name: KIMI JO [facility] Room #: 452-P [facility] IN M.R.#: [id number] Admission: 03/31/20 Attend Phys: Chelsie Vyas MD Discharge: Date of : 42 Report #: [id number] LABORATORY RESULTS: Blood glucose on arrival was in excess of 500 and then declined gradually overnight with the use of IV insulin towards being consistently under 190 mg/dL. Sodium 142; potassium 3.8; chloride 110; CO2 of 21; anion gap on presentation was 30, now at 11; BUN 11; creatinine 1.2; glucose 189. Lipase 342, AST 15, total bilirubin 0.5, calcium 8.6, phosphorus 2.7, magnesium 2.4, alkaline phosphatase 84, ALT 13, total protein 4.6, albumin 2.4, EGFR 44. Lactic acid 1.4. Total cholesterol 258, triglycerides 53, HDL 129, LDL 119 in 01/2020. INR 1.0. White blood count 15.1, hemoglobin 8.7, hematocrit 27.3, platelets 360. Hemoglobin A1c on 02/17/2020 was 8.5%. ASSESSMENT AND PLAN: 1. Diabetic ketoacidosis. The patient presented in diabetic ketoacidosis as per her clinical presentation as well as her metabolic abnormalities on laboratory workup. She has resolved her issues with DKA as per her lab workup today. That said, she is being taken off of IV insulin and converted to subcutaneous insulin as noted below. 2. Type 2 diabetes mellitus, insulin-dependent diabetes mellitus. The patient is insulin-dependent and has had significant issues with noncompliance, leading to multiple presentations with DKA including just a week ago. The patient was counseled extensively about the need to be more consistent with insulin intake. She was counseled about the short term and group home dangers of poor glycemic control including the recurrent episodes of DKA that she has had over the past few months. She has verbalized her understanding of an agreement with these points. Based on her documented IV insulin needs which come to about 1 unit per hour, I will place the patient on a combination of Lantus insulin 12 units daily as well as Humalog insulin 4 units with meals, all to be started now. IV insulin will be discontinued 2-3 hours following her first Lantus injection. A customized Humalog supplemental scale low intensity will be also ordered to where she would receive insulin only if her blood glucose exceeds 200 mg/dL. Blood glucose monitoring will commence before meals and at bedtime and further insulin and therapeutic adjustments will be made accordingly. 3. Hyperlipidemia. The patient's level of lipid control is inadequate as per her most recent lipid panel in 01/2020. I will verify this outlook and initiate statin therapy if needed. 4. Renal insufficiency. The patient's current kidney function indices are consistent with stage 3 chronic kidney disease. She was counseled about this finding and advised about the importance of adequate glycemic control towards the avoiding further deterioration in her kidney function, which she seemed to understand well. I have reviewed the patient's clinical care notes past and present, laboratory values, and other pertinent clinical information for over 35 [place] [address] CONSULTATION Name: KIMI JO [facility] Room #: 452-P [facility] IN M.R.#: [id number] Admission: 03/31/20 Attend Phys: Chelsie Vyas MD Discharge: Date of : 42 Report #: [id number] to my encounter time with her. I certainly appreciate this consultation by Dr. Vyas. <ELECTRONICALLY SIGNED> By: Lisseth Espinoza MD 04/02/20 1236 1205 1333 Lisseth Espinoza MD /nt
--- NOTE | 2020-04-02 16:21 | NUR ---
[facility] WON'T ACCEPT PT BACK FOR SKILLED REHAB. CM NOTIFIED PT AND PT'S SON AGNIESZKA. CM PROVIDED THEM BOTH WITH [facility] SNF LIST FOR REVIEW. PT INDICATED SHE DIDN'T WANT CM SPEAKING WITH HER SISTER SHE IS MAD AT HERE. CM CALLED AND SPOKE WITH GARCIA ROQUE WITH APS SHE INDICATED SHE HAD 6 REPORTS ON PT. CM CALLED AND SPOKE WITH SON AGAIN AND HE INDICATED THAT THEY HAD COMPLETED A [place] MEDICAID APPLICATION AND THAT THEY HAD SPOKEN WITH AN WOOD BUCKER RELATED TO [employer] BUT NO FILINGS SEEN ON CASE NET PER APS GARCIA. CM INDICATED THAT OT INDICATED PT WOULD BENEFIT FROM [facility] STAY AND THAT [facility] HAD BEEN CONSULTED BUT HADN'T SEEN PT YET. SON AND SISTER LOOKING AT FACILITIES. CM INDICATED MIGHT LOOK AT FACILITIES IN [facility] AND [facility] IN [facility]. CM TO FOLLOW INDICATED WITH DC PLANNIN. NO WEEKEND DC ANTICPATED.
--- NOTE | 2020-04-02 18:34 | NUR ---
PATIENT HAS A AC/DINNER FSBS OF >20 ACCORDING TO GLUCOMETER. PHYSICIAN PAGED; NO CALL BACK. PHYSICIAN CELL PHONE CALLED AND VOICEMAIL WAS LEFT. AWAITING CALL BACK...
[2020-04-02 19:43] VITALS: BP 170/80
--- NOTE | 2020-04-03 03:04 | NUR ---
PATIENT ALERT AND ORIENTED X4 WITH PERIODS OF CONFUSION, POSSIBLY WHEN HER BLOOD SUGAR DROPS, IT IS LABILE. BS AT 2100 168. BS CHECKED AT MN 105. WILL MONITOR AGAIN AT O400. UP TO BATHROOM X2 TO VOID WITH SBA AT TIME OF NOTE. SLEEPING OFF AND ON. C/O RIGHT ARM HURTING AND RECEIVED NEW ORDER FOR TYLENOL, GIVEN AND PATIENT HAS HAD NO FURTHER COMPLAINTS OF PAIN. NO INSULIN GIVEN ON ARCHITECT INTERN. REMAINS ON TELEMETRY.
[2020-04-03 05:32] LABS: ABSOLUTE RETIC COUNT 0.0248 10^6/uL; OBSERVED RETIC COUNT 0.8 % (0.6-2.6)
[2020-04-03 05:42] LABS: % SATURATION 31 % (20-39); IRON 67 ug/dL (50-170); TIBC 217 ug/dL (250-450)
[2020-04-03 07:34] VITALS: BP 176/88
--- NOTE | 2020-04-03 13:58 | NUR ---
PT CAME IN WITH DKA AND IS A&OX3 WITH SOME CONFUSION, BLOOD SUGARS HAVE BEEN STAYING UNDER 200 TODAY. PT IS CONTINENT OF BOWEL AND BLADDER WITH STAND BY ASSIST. PT IS ON A CARB CONTROL DIET, AND SLIDING SCALE INSULIN. SALINE LOCK ON RIGHT UPPER ARM. FALL PRECAUTIONS IN PLACE, WILL CONTINUE TO MONITOR.
--- NOTE | 2020-04-03 14:04 | NUR ---
PT IS DISORIENTED, ALERT TO SELF ONLY, AND VSS. PT IS CONTINENT TO BOTH BOWEL AND BLADDER. PT ON A MECH SOFT CHOPPED DIET. PT IS IMPULSIVE, LAST BM YESTERDAY. FALL PRECAUTIONS IN PLACE, WILL CONTINUE TO MONITOR.
[2020-04-03 15:58] VITALS: BP 169/81
--- NOTE | 2020-04-03 22:23 | NUR ---
ASSUMED CARE OF PT AT 1900. PT IS A/O X3. UP WITH SBA TO THE RESTROOM. PT BLOOD GLUCOSE LEVEL WAS 54. PROVIDED SNACKS AND A BEVERAGE. UPON RECHECKING GLUCOSE LEVEL WAS 80. PT DENIES ANY C/O PAIN OR DISCOMFORT. NO NAUSEA NOTED. TRANSFERED PT TO ANOTHER UNIT AND REPORTED TO ONCOMING NURSE.
--- NOTE | 2020-04-04 01:09 | NUR ---
PT TRANSFERRED FROM [facility] AT AROUND 2200HRS. PT IS ALERT AND ORIENTED X 3. SHE IS IMPULSIVE. WALKS STEADILY WITH SBA TO THE BATHROOM. DENIES PAIN.CALL LIGHT WITHIN REACH. FALL PREC IN PLACE.
[2020-04-04 07:55] VITALS: BP 138/89
--- NOTE | 2020-04-04 14:29 | NUR ---
Assumed care of pt at 0700. Pt noncompliant with diabetes management. Asks to have ice-cream while blood sugar is high. Pt educated. Denies pain. Assisted living vs home health? Call light within reach. Will continue to monitor.
[2020-04-04 16:55] VITALS: BP 143/87
[2020-04-04 22:10] VITALS: BP 151/82
--- NOTE | 2020-04-05 07:24 | NUR ---
PT AMBULATING TO BATHROOM INDEPENDENTLY AND IS TOLERATING WELL. DENIES PAIN. RESTING COMFORTABLY. NO NEEDS VOICED. CALL LIGHT WITHIN REACH. FREQUENT OBSERVATION.
[2020-04-05 07:50] VITALS: BP 148/62
--- NOTE | 2020-04-05 12:24 | NUR ---
Assumed care of pt at 0700. SBA to the toilet. Pt will likely d/c tomorrow 04/06. Family aware. Denies pain. Call light within reach. Will continue to monitor.
--- NOTE | 2020-04-05 16:44 | NUR ---
FAXED REFERRAL TO [facility] RECEIVED CONFIRMATION AND LEFT MSG WITH ISABELLA IN ADM. FAXED REFERRAL TO [facility] RECEIVED CONFIRMATION AND SPOKE WITH JD IN ADM HE SAID PT HAS ALREADY CALLED THEIR FACILITY AND WAS STATING SHE NEEDED AL BUT SHE IS NEEDING SKILLED BEFORE AL. HE WILL REVIEW AND HAVE A ANSWER TOMORROW. FAXED A REFERRAL TO [facility] RECEIVED CONFIRMATION AND LEFT MSG WITH RADHA IN ADM. DP TO FOLLOW.
[2020-04-05 16:55] VITALS: BP 129/59
[2020-04-05 19:25] VITALS: BP 124/55
--- NOTE | 2020-04-06 03:59 | NUR ---
ASSUMED PT CARE AT 1900.PT DENIED PAIN SO FAR.UP WITH ASSIST TO THE BSC.PT PLEASNAT AND COPERATIVE WITH CARE.PT RESTING QUIETLY ON HER BED AT THIS TIME.FALL PRECAUTIONS IN PLACE.CALL LIGHT WITHIN REACH.
[2020-04-06 04:31] VITALS: BP 170/65
[2020-04-06 08:32] VITALS: BP 162/79
--- NOTE | 2020-04-06 10:54 | NUR ---
CM MET WITH PT AT BEDSIDE YESTERDAY. PT IS AWARE AND AGREEABLE THAT SHE ISN'T CAPABLE OF MANAGING HER DIABETES IN THE HOME ANY LONGER. AND IS RECEPTIVE TO SKILLED POST ACUTE CARE STAY WITH TRANSITION TO ASSISTED LIVING. REFERRAL SENT TO [facility] AND [facility]. CM TO FOLLOW INDICATED WITH DC PLANNING.
--- NOTE | 2020-04-06 12:04 | NUR ---
Assumed care of pt at 0700. Pt denies pain. Worked with physical therapy. Pt ambulates with a steady gait. Blood sugar 416 this am. Provider aware. Awaiting SNF placement. Call light within reach. Will continue to monitor.
--- NOTE | 2020-04-06 15:16 | NUR ---
CM CIRCLED BACK W/FACILITES RE: REFERRAL SENT [facility] - DOES HAVE ANY SKILLED BED FOR THIS WEEK/KATHRYN. [facility]- [facility] HAVE A SKILLED BED UNTIL POSSIBLY SUNDAY, F/U ON SUNDAY/ISABELLA. [facility] - T FOR [facility].
--- NOTE | 2020-04-06 16:29 | NUR ---
SPOKE WITH JD IN ADM AT [facility] THEY ARE STILL REVIEWING REFERRAL AND HAVE SPOKEN WITH PT'S FAMILY AND THEY ARE BRINGING IN FINANCIAL STATEMENTS TO FACILITY.
[2020-04-06 17:21] VITALS: BP 138/59
[2020-04-06 19:13] VITALS: BP 123/46
--- NOTE | 2020-04-07 03:01 | NUR ---
PT WAS OBSERVED LYING IN BED WITH HER EYES CLOSED AT START OF SHIFT.PT DENIED PAIN.UP WITH SBA TO THE TOILET.NO CONCERNS VOICED.BG MONITORED AND COVERAGE GIVEN PER ORDERS.PT LOOKING FORWARD TO BE DC'D LATER IN THE DAY.CALL LIGHT WITHIN REACH.
[2020-04-07 04:08] VITALS: BP 150/72
[2020-04-07 07:55] VITALS: BP 142/74
--- NOTE | 2020-04-07 11:37 | NUR ---
SW reviewed chart and spoke with nursing and attending physician. Pt is progressing towards goals for discharge. SW met with pt at bedside to discuss discharge plan. Pt is agreeable with discharging to [facility] or [facility]. [facility] will most likely not have a bed until Sunday, at the earliest. Pt's family has provided financial information to Orlando at [facility]. SW left voice message for Orlando to follow up. Will need insurance auth for SNF placement. Pt may be able to move directly into an AL apt if SNF level of care is not approved. Awaiting call back at this time. SW is following to assist as needed with discharge planning.
--- NOTE | 2020-04-07 19:21 | NUR ---
PT IS AOX4, VSS, CALLS APPROPRIATELY. PT UP AD GEORGE TO RESTROOM. PT BS ARE WNL, S/S GIVEN NEEDED. PT WANTS TO DISCHARGE TO A REHAB FACILITY TOMORROW. MEDICAL STAFF COORDINATOR INFORMED AND PT SPOKE TO HER. WILL CONTINUE TO MONITOR FOR SAFETY.
[2020-04-07 19:59] VITALS: BP 113/64
--- NOTE | 2020-04-08 05:54 | NUR ---
ASSESSED AT START OF SHIFT. PT UP WITH SBA TO THE BATHROOM. BSG WITH LONG ACTING COVERAGE. TYELNOL GIVEN FOR PAIN. FALL PREC IN PLACE CALL LIGHT IN REACH WILL CONT WITH POC TILL EOS.
[2020-04-08 08:00] VITALS: BP 116/70
[2020-04-08] MEDS ORDERED: HUMALOG100 UNIT/1 SUBQ (09:15)
--- NOTE | 2020-04-08 16:30 | NUR ---
SHEYLA Coker/CORTEZ AT [facility] AND JHOANA AT [facility]. GAYLE TO FAX REFERRAL TO EACH FACILITY LFT VM AT [facility] TO F/U ON BED AVAIL FOR SUNDAY.
--- NOTE | 2020-04-08 16:32 | NUR ---
SHEYLA SPK W/PT'S SON, AGNIESZKA AND DTR, CARMEN AGNIESZKA STATED HE AND CARMEN HAD DISCUSSED TAKING TURNS STAYING IN HOME W/PT TO ASSIST W/CARE, I.E. MEDICATION MANAGEMENT AND MEALS, ETC. AGNIESZKA WORKS AM, SO HE PLANS TO SPEN EVENINGS/OVERNIGHTS W/PT AND CARMEN WORKS OVERNIGHT SO SHE PLANS TO STAY W/PT DURING THE DAY. AGNIESZKA STATED THERE WOULD ONLY BE A FEW HOURS DURING THE DAY PT WOULD BE ALONE ON ANY GIVEN DAY. CARMEN STATED THEY HAVE RETAINED AN ATTORNY RE; [facility] BUT HAS PLACE THAT ON HOLD D/T PT BEING HOSPITALIZED AND ALSO PT IS AGREEABLE TO MOVING INTO [place] SHE REALIZE SHE NEEDS ASSISTANCE MANAGING DIABETES. THE CHILDREN ARE WORKING W/JD AT [facility] TO PROVIDE PT'S FINANCIALS SO THEY CAN GT PT PLACED AT THE FACILITY. JD STATED HE WILL CONTACT FAMILY TODAY TO "EXPEDITE THE PROCESS". CM CONTACTED CLEV AT [facility] TO DISCUSS PLAN. CLEV IS AGREEABLE TO PLAN SINCE BOTH CHILDREN HAVE AGREED TO ASSIST PT W/CARES AND ENSURE SHE IS MANAGING HEALTH. SHEYLA SPK W/PT WHO AGREEABLE TO PLAN. SHE STATED IT WOULD BE GOOD TO HAVE ONE OF HER CHILDREN THEIR IN THE MORNING TO "MAKE SURE I TAKE MY MEDICINE AND EAT SOMETHING." PT REMARKED SHE WANTED TO EVENTUALLY GO INTO AL, "LIKE MY MOTHER DID" B/C SHE DOES NOT WANT TO "BURDEN" HER CHILDREN. CM TO CONT TO FOLLOW.
[2020-04-08 16:40] VITALS: BP 124/66
--- NOTE | 2020-04-08 16:46 | NUR ---
[facility] HAS DECLINED PT D/T COVID POSITIVE IN FACILITY. FORUM IN OP HAS DECLINED PT D/T "NON-COMPLIANCE...AND "CONCERNS ABOUT US BEING ABLE TO MANANGE HER PSYCHO-SOCIAL NEEDS AND WITH HER ALCOHOLISM WE DO NOT FEEL THAT WE ARE THE APPROPRIATE SETTING FOR HER."
--- NOTE | 2020-04-08 17:22 | NUR ---
FAXED REFERRAL TO [facility] RECEIVED CONFIRMATION WILL F/U WITH CORTEZ IN ADM IN THE AM. FAXXED REFERRAL TO [facility] RECEIVED CONFIRMATION WILL F/U WITH JHOANA IN ADM IN THE AM.
--- NOTE | 2020-04-08 18:46 | NUR ---
PT IS AOX3, FORGETFUL AT TIMES. PT VSS, REPORTS SHE WANTS TO GO HOME WITH HOME HEALTH. IV PATENT/SL. APPETITE IS FAIR, CALL LIGHT IN REACH. WILL CONTINUE TO MONITOR.
[2020-04-08 19:32] VITALS: BP 130/62
[2020-04-09 03:59] VITALS: BP 120/61
--- NOTE | 2020-04-09 04:33 | NUR ---
ASSESSED AT START OF SHIFT. TYLENOL GIVEN FOR LFT HAND PAIN. PT UP WITH SBA TO THE BATHROOM. BSG CHECKED WITH NOGHT TIME COVERAGE. FALL PREC IN PLACE AND CALL LIGHT IN REACH WILL CONT TO MONITOR.
[2020-04-09 08:36] VITALS: BP 131/71
--- NOTE | 2020-04-09 11:54 | NUR ---
d/c senior program planner informed cm that [facility] is able to accept pt for snf. [facility] will put in for auth today. pt son, emile, and pt notified of this info and are agreeable to plan. cm to cont to follow .
--- NOTE | 2020-04-09 15:51 | NUR ---
Assumed care of pt. at 0700. Pt. was calm and cooperative. Pt. became anxious around mid-day about getting discharged. Became very aggitated that she didn't have insurance authorization and wanted to speak with CM. CM notified and spoke with pt.
[2020-04-09 16:22] VITALS: BP 119/62
[2020-04-09 16:32] VITALS: BP 119/62
--- NOTE | 2020-04-09 16:33 | NUR ---
TANYA W/[facility] IS ABLE TO ACCEPT PT. TANYA TO CONTACT PT TOMORROW TO ARRANGE VISITS. PT SON NOTIFIED PT IS D/C'G TODAY AND GIVEN TIME. SHEYLA LEFT W/CLEV AT [facility] [phone] TO INFORM HER PT IS GOING HOME TODAY W/HER CHILDREN PROVIDING ASSISTANCE W/CARE. D/C TOWER CONTROL OPERATOR FAXED ORDERS TO [facility].
[2020-04-09 16:48] VITALS: BP 119/62
[2020-04-09 16:49] VITALS: BP 119/62
== END 2020-04-09 17:38 | disposition home health service (06) | DRG 637 ==
LOC: ER 13:19 → 4S 17:51 → EROBS 17:51 → ICU 17:51 → 4W 04-01 15:39 → 4S 04-03 22:28
PROVIDERS: Internal Medicine; Nurse Practitioner Family; ADMIT Internal Medicine; ATTEND Internal Medicine
DX: E10.10 Type 1 diabetes mellitus with ketoacidosis without coma (principal); G93.41 Metabolic encephalopathy; E46 Unspecified protein-calorie malnutrition; Z20.828 Contact with and (suspected) exposure to other viral communicable diseases; K21.9 Gastro-esophageal reflux disease without esophagitis; E78.5 Hyperlipidemia, unspecified; N18.9 Chronic kidney disease, unspecified; Z60.2 Problems related to living alone; I12.9 Hypertensive chronic kidney disease with stage 1 through stage 4 chronic kidney disease, or unspecified chronic kidney disease; D64.9 Anemia, unspecified; G47.00 Insomnia, unspecified; E55.9 Vitamin D deficiency, unspecified; E53.8 Deficiency of other specified B group vitamins; F32.9 Major depressive disorder, single episode, unspecified; Z88.8 Allergy status to other drugs, medicaments and biological substances; Z87.891 Personal history of nicotine dependence; Z79.4 Long term (current) use of insulin; Z91.14 Patient's other noncompliance with medication regimen; Z79.899 Other long term (current) drug therapy; Z68.21 Body mass index [BMI] 21.0-21.9, adult
CPT/HCPCS: 10040; 10045; 10078; 10102

== ENCOUNTER 2020-04-13 17:15 | Inpatient (IN) | payer OTHER ==
[~2020-04-13] VITALS: Ht 160 cm; Wt 48.9 kg
[2020-04-13] VITALS (10 sets, daily range): BP systolic 89–128; BP diastolic 29–48
[2020-04-13 17:43] LABS: HEMATOCRIT 32.2 % (37.0-47.0); HEMOGLOBIN 9.1 gm/dL (12.0-15.0); MCH 29.2 pg (26.0-34.0); MCHC 28.3 g/dL (28.0-37.0); MCV 102.9 fL (80.0-100.0); PLATELET COUNT 316 thou/uL (150-400); RBC 3.13 mil/uL (4.20-5.00); RDW 16.4 % (10.5-14.5); WBC 17.6 thou/uL (4.0-11.0)
[2020-04-13 18:01] LABS: ALBUMIN 3.2 g/dL (3.4-5.0); BUN 29 mg/dL (7-18); CALCIUM 9.8 mg/dL (8.5-10.1); CHLORIDE 93 mmol/L (98-107); CREATININE 1.7 mg/dL (0.6-1.0); MAGNESIUM 2.3 mg/dL (1.8-2.4); SGOT 19 U/L (15-37); SGPT 17 U/L (30-65); SODIUM 132 mmol/L (136-145); TOTAL BILIRUBIN 0.5 mg/dL (0.2-1.0); TOTAL PROTEIN 6.3 g/dL (6.4-8.2); TROPONIN-I <0.06 ng/mL (<0.06)
[2020-04-13 18:14] LABS: ABSOLUTE NEUTROPHILS 15.1 thou/uL (1.4-8.2); ANION GAP 34 mmol/L (7-16); ANISOCYTOSIS 1+; MACROCYTES 1+
[2020-04-13 18:21] LABS: CO2 5 mmol/L (21-32); GLUCOSE 900 mg/dL (74-106); POTASSIUM 7.2 mmol/L (3.5-5.1)
[2020-04-13 18:56] LABS: BE(vivo) -30.7 mmol/L (-2 to +3); PCO2 VENOUS 22.2 mmHg (41.0-51.0); PO2 VENOUS 202.1 mmHg (35.0-45.0)
--- NOTE | 2020-04-13 19:33 | NUR ---
CALLED TO GIVE NURSING REPORT WAS TOLD RECEIVING NURSE WILL HAVE TO RETURN MY CALL
[2020-04-13] MEDS ORDERED: REVIA 50 MG TAB50 M1 PO (20:05)
[2020-04-13] MEDS ORDERED: FOLIC ACID1 MG PO (20:05)
[2020-04-13] MEDS ORDERED: BUPROPION XL300 MG PO (20:06)
[2020-04-13] MEDS ORDERED: LISINOPRIL10 MG PO (20:06)
[2020-04-13] MEDS ORDERED: LEVO-T50 MCG PO (20:07)
[2020-04-13] MEDS ORDERED: TRAZODONE HCL50 MG PO (20:07)
[2020-04-13 20:28] LABS: URINE BILIRUBIN NEGATIVE (Negative); URINE BLOOD TRACE (Negative); URINE CLARITY CLEAR; URINE COLOR YELLOW; URINE GLUCOSE-RANDOM* 3+ (Negative); URINE KETONES 2+ (Negative); URINE LEUKOCYTES-REFLEX NEGATIVE (Negative); URINE NITRITE-REFLEX NEGATIVE (Negative); URINE PROTEIN (DIPSTICK) NEGATIVE (Negative); URINE UROBILINOGEN 0.2 E.U./dl (0.2-1.0)
[2020-04-13 22:22] LABS: ALBUMIN 2.8 g/dL (3.4-5.0); CALCIUM 8.2 mg/dL (8.5-10.1); CREATININE 1.8 mg/dL (0.6-1.0); PHOSPHORUS 4.7 mg/dL (2.5-4.9)
--- NOTE | 2020-04-13 22:23 | NUR ---
ADMISSION NOTE: Pt was admitted from ED with hyperglycemia, BGL over 600 and at the time of report, pt was said to be over 900, with an insulin drip infusing at 6 units/hour. Pt has received three liters of IVF's, a trivedi catheter was placed for strict I&O monitoring. She is calm, confused at times, requesting water frequently, is taking ice chips w/o difficulty, and no complaints of nausea. The bed is in the low/locked position, the call light is within reach, the siderails are up x 4 and the bed alarm is set. Will continue to monitor and treat per DKA protocol.
[2020-04-13 22:27] LABS: POTASSIUM 4.6 mmol/L (3.5-5.1)
[2020-04-14] VITALS (31 sets, daily range): BP systolic 107–152; BP diastolic 36–61
[2020-04-14 02:46] LABS: ALBUMIN 2.5 g/dL (3.4-5.0); CALCIUM 8.2 mg/dL (8.5-10.1); CREATININE 1.3 mg/dL (0.6-1.0); MAGNESIUM 1.7 mg/dL (1.8-2.4); PHOSPHORUS 1.5 mg/dL (2.5-4.9); POTASSIUM 3.9 mmol/L (3.5-5.1)
[2020-04-14 07:39] LABS: ALBUMIN 2.4 g/dL (3.4-5.0); CALCIUM 8.3 mg/dL (8.5-10.1); PHOSPHORUS 2.3 mg/dL (2.5-4.9); POTASSIUM 4.4 mmol/L (3.5-5.1)
--- NOTE | 2020-04-14 08:52 | EKG ---
[facility] [place] [address] ELECTROCARDIOGRAM REPORT Name: KIMI JO Room #: 242-P ADM IN M.R.#: [id number] Admission: 04/13/20 Attend Phys: Donato Albright MD Discharge: Date of : 44 Report #: [id number] THIS REPORT FOR: cc: Galen Bahena MD,Galen Schneider,Tay Núñez MD [facility] ~ THIS REPORT FOR: //name// [facility] ED Test Date: 2020-04-13 Test Time: 19:34:03 Pat Name: KIMI JO Department: Room: 242 Gender: F Multiple Drum Sander: Gordon : 1940 Requested By: Tera Rodriguez Order Number: [id number] MD: Tay Schneider Measurements Intervals [place] Rate: 100 P: 80 TN: 170 QRS: -54 QRSD: 116 T: 95 QT: 394 QTc: 509 Interpretive Statements Sinus tachycardia Incomplete left bundle branch block Compared to ECG 03/31/2020 13:48:41 No significant change was found Electronically Signed On 04-14-2020 8:52:42 CDT by Tay Schneider [email or web address] <ELECTRONICALLY SIGNED> By: Tay Schneider MD, [facility] 04/14/20 0852 33 33 Tay Schneider MD, [facility] /EPI
[2020-04-14 09:37] LABS: HEMATOCRIT 24.3 % (37.0-47.0); HEMOGLOBIN 7.6 gm/dL (12.0-15.0); MCH 28.7 pg (26.0-34.0); MCHC 31.3 g/dL (28.0-37.0); RBC 2.64 mil/uL (4.20-5.00); RDW 15.1 % (10.5-14.5); WBC 17.9 thou/uL (4.0-11.0)
[2020-04-14 09:42] LABS: PLATELET COUNT 240 thou/uL (150-400)
[2020-04-14 09:53] LABS: MCV 91.9 fL (80.0-100.0)
[2020-04-14 11:12] LABS: ABSOLUTE NEUTROPHILS 14.3 thou/uL (1.4-8.2)
[2020-04-14 11:13] LABS: ANISOCYTOSIS SLIGHT
--- NOTE | 2020-04-14 11:50 | NUR ---
chart review. pt been here multiple times with changes in blood sugar hi about 600. cm visited with blanca and son emile, he here visiting his mom. he stated, sister and me try to take turns staying with mom as much as possible we cane. trying to found her anne marie. cm provided retirement list of choice. going to call saad bacon again. she going to have to do retirement or ltc per son emile. pt lives in apartment 2nd floor, about 20 steps if have to walk. have elevator to use. ap left message for shukri with [facility] [phone], she returned phone cmrn call, there is still open case and hard to believe what pt and family are saying. let me know if need anything per shukri.
[2020-04-14 14:13] LABS: AMP/METHAMP Negative (Negative); BARBITURATES Negative (Negative); BENZODIAZEPINES Negative (Negative); COCAINE Negative (Negative); METHADONE Negative (Negative); OPIATES Negative (Negative); PCP Negative (Negative)
[2020-04-14 15:58] LABS: CALCIUM 8.3 mg/dL (8.5-10.1); CREATININE 1.1 mg/dL (0.6-1.0)
[2020-04-14 19:16] LABS: CALCIUM 8.6 mg/dL (8.5-10.1); CREATININE 1.2 mg/dL (0.6-1.0); POTASSIUM 3.6 mmol/L (3.5-5.1)
--- NOTE | 2020-04-14 19:24 | NUR ---
RN HAS ASSUNED PT'S CARE AT 0700AM, PT IS A&OX2 ( PERSON AND PLACE), PT IS CONFUSED AT TIME, PT IS CONTINUING TO FLOOW DKA PROTOCOL, PT'S BS IS RUNNIND 120-192 , AND PT'S IS INSULIN DRIP TITRATION AT 1-3.5 UNITS/HR, PT STARTS EAT AT DINNER TIME, PT GETS UP CHAIR AND STAY ABOUT 2HR, PT DENIES PAIN AND SOB AT THIS TIME, PT'S VS ARE STABLE, RN HAS REPORTED TO NEXT SHIFT TO KEEP EYE ON PT.
--- NOTE | 2020-04-14 19:40 | NUR ---
RN HAS CALLED DR TO REPORT PT'S LOW OUTPUT ( URINE ), RN HAS DONE BLADDER SCAN, RESULT SHOWS 0ML , RN HAS REPOTED TO NEXT SHIFT TO KEEP EYE ON PT'S OUTPUT.
--- NOTE | 2020-04-14 21:04 | NUR ---
CALLED TO NOTIFIED STEVO JOY TRANSIT DEPARTMENT CLERK, THAT GAP WAS CLOSED, CO2 STILL 18, BG STABLE. ORDERS FOR LANTUS, LISPRO AND SSI, 1X BAG OF NS FOR FLUIDS AT 100CC/HR, STOP DEXTROSE CONTAINING FLUIDS AND INSULIN GTT
[2020-04-15] VITALS (26 sets, daily range): BP systolic 86–217; BP diastolic 40–83
[2020-04-15 05:56] LABS: ABSOLUTE NEUTROPHILS 8.4 thou/uL (1.4-8.2); BASOPHILS 0.2 % (0.0-2.0); EOSINOPHILS 0.7 % (0.0-3.0); HEMATOCRIT 21.5 % (37.0-47.0); LYMPHOCYTES 24.1 % (24.0-44.0); MCHC 32.4 g/dL (28.0-37.0); MCV 89.6 fL (80.0-100.0); MONOCYTES 3.6 % (1.0-8.0); PLATELET COUNT 177 thou/uL (150-400); POLYS 71.4 % (36.0-66.0); RDW 15.2 % (10.5-14.5); WBC 11.7 thou/uL (4.0-11.0)
--- NOTE | 2020-04-15 06:23 | NUR ---
PATIENT RESTING QUIETLY THROUGHOUT NIGHT, 1X COMPLAINT OF PAIN IN HAND, STATING SHE USUALLY TAKES TYLENOL BEFORE BED, RESOLVED. VSS, 1X 1L NS INFUSED, URINE OP IMPROVED, PATIENT ROUSES EASILY AND RESPONDS APPROPRIATELY.
[2020-04-15 06:42] LABS: CREATININE 0.7 mg/dL (0.6-1.0); POTASSIUM 3.9 mmol/L (3.5-5.1); TOTAL BILIRUBIN 0.2 mg/dL (0.2-1.0); TOTAL PROTEIN 4.3 g/dL (6.4-8.2)
--- NOTE | 2020-04-15 08:47 | NUR ---
had rounds this am with pharmacy and dietitian and bedside nurse. had low bs this am and is on chopped diet. cm team notified by saad bacon that family was requested to meet with saad bacon rt bank statement family provided.
[2020-04-15 09:15] LABS: HEMATOCRIT 24.7 % (37.0-47.0); HEMOGLOBIN 8.4 gm/dL (12.0-15.0); MCH 30.1 pg (26.0-34.0); MCHC 33.8 g/dL (28.0-37.0); MCV 89.1 fL (80.0-100.0); OBSERVED RETIC COUNT 0.7 % (0.6-2.6); RBC 2.77 mil/uL (4.20-5.00); RDW 14.8 % (10.5-14.5); WBC 10.4 thou/uL (4.0-11.0)
[2020-04-15 09:23] LABS: CALCIUM 8.4 mg/dL (8.5-10.1); CREATININE 0.8 mg/dL (0.6-1.0); POTASSIUM 4.3 mmol/L (3.5-5.1)
[2020-04-15 09:27] LABS: % SATURATION 25 % (20-39); IRON 51 ug/dL (50-170); TIBC 204 ug/dL (250-450)
--- NOTE | 2020-04-15 09:32 | NUR ---
ASSUMED CARE @ 0700 04/15/20, PT ASSESSEMENT AND VSS COMPLETE PER ICU PRT. DR PALACIOS @ BEDSIDE, ORDERS RECIEVED FOR CBC FOR TRENDING DOWN HGB @ 7, RESULT BACK HGB 8.4, NO NEW ORDERS AT THIS TIME
[2020-04-15 09:54] LABS: TSH 7.119 uIU/mL (0.358-3.740)
[2020-04-15 10:39] LABS: FOLIC ACID 24.6 ng/mL (8.6-58.9)
--- NOTE | 2020-04-15 13:01 | NUR ---
FAXED REFERRAL TO [facility] SPOKE WITH JD IN ADM HE RECEIVED AND WILL REVIEW. FAXED REFERRAL TO [facility] RECEIVED CONFIRMATION AND LEFT MSG WITH ELSI IN ADM.
--- NOTE | 2020-04-15 22:14 | NUR ---
This RN to assume care at 1900 today. During shift change, patient got up without using call light to use restroom, upon reminding patient verbally abusive to staff. Upon my first assessment, pt cussing and demanding I remove catheter. She demanded I "show her papers that say she has to wear all this damn equipment", meaning her catheter, oxygen probe, leads and BP cuff. Eventually I just removed her catheter per her request. Every time this RN helps the patient to the toilet, patient is extremely verbalyl abusive, calling this RN "dumb" and "a bitch for making me drink this shit". Pt seems to be alert and oriented and answers orientation questions but simply can't be reasoned with. Pt tried to fire this RN as well. Hopeful patient relaxes and is respectful remainder of night. Urine output adequate, vital signs stable but pt is hypertensive. Will continue to monitor.
[2020-04-16] VITALS: BP 167/65
--- NOTE | 2020-04-16 01:17 | NUR ---
This RN gave report to the 4S nurse regarding pt. This patient transferred to room 445 succesfully. Pt saline locked, vital signs stable. Pt finished bowel prep and has been having liquid stools the past 4 hours. Colonscopy scheduled for tomorrow in the AM.
[2020-04-16 01:30] VITALS: BP 152/72
--- NOTE | 2020-04-16 02:14 | NUR ---
PT CAME TO THE UNIT AT 0130 FROM ICU.PT IS A/O X4.PT IS UP TO BATHROOM AND BEDSIDE COMMODE WITH X1 ASSIST.PT NPO FROM MIDNIGHT FOR COLONOSCOPY TODAY.PT HAD BOWEL PREP BEFORE COMING TO UNIT.PT HAD A COUPLE OF LOOSE STOOL .PT IS ACCUCHECKS ACHS .PT HAS BRUISES ON SKIN BUT NO OPEN WOUNDS.PT COVID TEST NEGATIVE AND ALSO NEGATIVE FOR OCCULT BLOOD.WILL CONTINUE TO MONITOR POC
[2020-04-16 05:44] VITALS: BP 144/64
--- NOTE | 2020-04-16 14:11 | NUR ---
AMANDA reviewed chart and spoke with nursing and attending physician. Pt transferred to from ICU and is progressing towards goals for discharge. Pt had a colonoscopy earlier today. AMANDA notified that [facility] declined pt for admission. [facility] is able to accept pt. AMANDA spoke with pt's son, Jasson, via phone to provide update and discuss discharge plan. Pt's son is [facility]able [facility]. shoe planner to fax clinical/therapy updates to the facility and request for facility to submit for insurance authorization. Unsure of insurance authorization will be obtained over the weekend. AMANDA spoke with Dre at [facility] to provide update regarding discharge disposition. Dre will need to be notified when pt is discharged from [facility] ( ). AMANDA spoke with HATTIE Villagomezfamily nurse practitioner with [facility] to provide update and discuss discharge plan. ( ). [facility] is able to provide auth within 48 hours of submission, which does include over the weekend. AMANDA is following to assist as needed with discharge planning. [facility]--
--- NOTE | 2020-04-16 19:25 | NUR ---
Assumed care of patient at 0700. Pt. calm and cooperative. Pt. became agitated about the colonoscopy being later than previously scheduled. She then became very irritated about the follow up CT scan that was ordered and demanded and explanation for the study. Two RN's and a PA for GI all explained the procedure, but the pt. contnued to not remember the previous explanation and continued to be upset. She eventually decided she would be fine with the scan and went down to receive it. Pt. mentioned wanted to leave AMA, but wanted to speak with a Dr. haywood. After discussion with her son she calmed down and decided that it was in her best interest to stay. Fall precautions in place.
[2020-04-16 22:10] VITALS: BP 148/62
--- NOTE | 2020-04-17 02:14 | NUR ---
PATIENT ALERT AND ORIENTED X4, HOWEVER, FORGETFUL. UP IN ROOM TO BATHROOM W/O CALLING INSTRUCTED AND VOIDING ON FLOOR ON HER WAY TO THE BATHROOM. COOPERATIVE WITH MEDICATION. COLONOSCOPY DONE DURING THE DAY WELL A CT SCAN. PATIENT WANTED TO GO AMA DURING THE DAY. SHE BECAME UPSET AFTER SHE STATED SOMEONE CALLED HER REGARDING HOME HEALTH AND NEED SOME PERSONAL INFORMATION FROM HER. THIS NURSE EXPLAINED THAT THE CM IS PROBABLY ARRANGING FOR HER DISCHARGE, HOWEVER, IT WAS UNCLEAR WHY THEY CALLED HER. PATIENT STATED THAT THE DOCTOR SAID SHE COULD GO HOME, HOWEVER, NO ORDER HAS BEEN WRITTEN FOR DISCHARGE WHICH WAS EXPLAINED TO THE PATIENT HOW THIS IS NEEDED BEFORE HER BEING RELEASED TO GO HOME. AFTER MUCH DISCUSSION, PATIENT CALMED AND IS IN THE BED RESTING AT TIME OF NOTE. WILL MONITOR. DENIES PAIN.
[2020-04-17 05:20] VITALS: BP 141/66
[2020-04-17 09:13] VITALS: BP 147/70
--- NOTE | 2020-04-17 15:52 | NUR ---
Assumed care of pt. at 0700. Pt. was calm and cooperative. Pt. had questions about possible discharge today. I explained that the CM was looking for possible placement/HH. She was understanding of this and it was later also explained to her and her son when he arrived. They both agreed that it was in her best interest to remain here until placement was found. Pt. exhibits a constant lack of short term memory that would endager her away from the hospital as daily cares and meds could easily be forgoten. Placement in a system with 24 hour supervision would be optimal for this pt. in my nursing opinion.
[2020-04-17 17:32] VITALS: BP 130/47
[2020-04-17 20:40] VITALS: BP 135/63
--- NOTE | 2020-04-18 03:29 | NUR ---
PATIENT ALERT AND ORIENTED X4. UP AND AROUND IN ROOM W/O ASSIST TO THE BATHROOM. DENIES PAIN. BS AT 2100 - 137. PATIENT GIVEN STANDING ORDER OF LANTUS (12UNITS) AND NO S/S WAS NECESSARY. PLEASANT AND COOPERATIVE, TALKING ON THE PHONE TO FRIENDS AT BEGINNING OF SHIFT. FORGETFUL AT TIMES. WILL MONITOR.
[2020-04-18 05:39] LABS: HEMATOCRIT 25.9 % (37.0-47.0); HEMOGLOBIN 8.4 gm/dL (12.0-15.0); MCH 29.1 pg (26.0-34.0); MCHC 32.6 g/dL (28.0-37.0); MCV 89.1 fL (80.0-100.0); RBC 2.91 mil/uL (4.20-5.00); RDW 14.8 % (10.5-14.5); WBC 4.6 thou/uL (4.0-11.0)
[2020-04-18 05:53] LABS: CREATININE 0.6 mg/dL (0.6-1.0); MAGNESIUM 1.7 mg/dL (1.8-2.4); POTASSIUM 3.4 mmol/L (3.5-5.1)
[2020-04-18 07:25] VITALS: BP 135/70
[2020-04-18 15:33] VITALS: BP 139/83
--- NOTE | 2020-04-18 18:40 | NUR ---
ASSUMMED PT CARE AT APPROXIMATELY 0700. PT A&O X4, PT FORGETFUL AT TIMES. ASSESSMENT CHARTED. FALL PRECAUTIONS IN PLACE. PT DENIES HAVING CHEST PAIN. PT DENIES HAVING SOB. EDUCATED PT ABOUT POC. PT STATED UNDERSTANDING. HYPOGLYCEMIA PROTOCOL IMPLEMENTED AND FOLLOWED. BLOOD SUGARS STABLE. VITAL SIGNS STABLE. INFORMED DR. PALACIOS OF HYPOGLYCEMIA AND LOW ELECTROLYTES. NEW ORDERS IMPLEMENTED. PT COMFORTABLE IN BED. PT DENIES HAVING FURTHER CONCERNS.
[2020-04-18 19:55] VITALS: BP 140/67
--- NOTE | 2020-04-19 02:50 | NUR ---
PATIENT ALERT AND ORIENTED X4 WITH FORGETFULNESS. UP TO BATHROOM INDEPENDENTLY. DENIES PAIN. CM IS LOOKING FOR PLACEMENT THIS WEEK. BS MONITORED PER ORDER. UP SEVERAL TIMES DURING THE NIGHT, HOWEVER, RESTING COMFORTABLY AT TIME OF NOTE. WILL MONITOR.
[2020-04-19 07:36] VITALS: BP 104/67
--- NOTE | 2020-04-19 11:15 | NUR ---
ap spk w/the following snf re bed availabilty. And, d/c planner/scheduleraidan to fax referrals. [facility], [facility], [facility] and [facility].
--- NOTE | 2020-04-19 14:19 | NUR ---
PT ALERT AND ORIENTED, BUT SOMEWHAT CONFUSED, SEEMS THAT PT'S INSURANCE CARDS WERE LEFT ON BREAKFAST TRAY. CONTACTING ADMISSIONS TO PRINT COPIES OF CARDS SO PT CAN CALL AND HAVE THEM REPLACED, PT RESTING IN BED, REVIEWED POC FOR THE DAY, SHE VERBALIZED UNDERSTANDING, WAITING FOR SKILLED PLACEMENT
[2020-04-19 15:59] VITALS: BP 132/52
--- NOTE | 2020-04-19 16:46 | NUR ---
[facility]IRE[facility] DECLINED ADMISSION, AWAITING [facility] TO REVIEW. LEONELA IS COMING TO DO BEDSIDE EVAL TOMORROW MORNING TO DECIDE. CM NOTIFIED PT. CM TO FOLLOW INDICATED WITH DC PLANNING.
--- NOTE | 2020-04-19 17:06 | PATH ---
[facility] [address] [place] [address] PATHOLOGY RPT PROCEDURE Name: KIMI DIAZ [facility] Room #: 445-P ADM IN M.R.#: [id number] Admission: 04/13/20 Date of : 44 Discharge: Report #: [id number] Path Case #: [id number] [facility] Accession Number: [id number] . 01 Material submitted: . PART A: cecum - BX OF CECAL INFLAMMATION PART B: colon - ASCENDING COLON POLYP. Modifiers: ascending . 01 Clinician provided ICD-10: E10.10 G93.41 . 01 Clinical history: . 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 02 Diagnosis: A. Large intestine mucosa, cecal inflammation, endoscopic biopsy: - Focal moderate active colitis, please see comment. . B. Polyp, ascending colon polyp, endoscopic biopsy: - Tubular adenoma. - Negative for high-grade dysplasia. (IUV:yovany; 04/19/2020) QMS 04/19/2020 1431 Local . 02 Comment: Sections of the colonic mucosa designated "cecal inflammation" show focal cryptitis, and a moderately cellular lamina propria composed predominantly of lymphocytes and plasma cells and occasional eosinophils. Surface ulceration is not identified. There are no crypt abscesses, granulomas or viral inclusions. The process affects all the fragments with a similar intensity. Given the description, the differential diagnosis includes focal marked active self-limited episode of colitis, infectious-type of colitis, medication or drug induced colitis, early or evolving inflammatory bowel disease, as well as diverticulitis. The surface epithelium shows marked reactive changes, and due to the inflammation appears indefinite for dysplasia. Please correlate with clinical as well as endoscopic findings. (IUV:yovany; 04/19/2020) . 02 Electronically signed: . Fransisca Walker MD, Pathologist NPI- [id number] . 01 Gross description: . A. The specimen is received in formalin, labeled "Kimi Diaz, [place] [address] PATHOLOGY RPT PROCEDURE Name: KIMI DIAZ [facility] Room #: 445-P [facility] IN M.R.#: [id number] Admission: 04/13/20 Date of : 44 Discharge: Report #: [id number] Path Case #: [id number] biopsy of cecal inflammation". Received are four segments of pale hernandez soft tissue ranging in size from 0.3 to 0.5 cm in maximum dimensions. The specimen is submitted entirely in cassette A1. . B. The specimen is received in formalin, labeled "Kimi Emily, ascending colon polyp". Received are two segments of pale hernandez soft tissue ranging in size from 0.2 to 0.3 cm in maximum dimensions. The specimen is submitted entirely in cassette B1. (CAA; 04/17/2020) QAC/QAC 04/17/2020 1212 Local . 02 Pathologist provided ICD-10: K52.9, D12.2 . 02 CPT . 650693, 130626 Specimen Comment: A courtesy copy of this report has been sent to [phone], [phone]- Specimen Comment: [phone], Specimen Comment: Report sent to ,DR BLANCO / DR PALACIOS Performed at: [address], [place] [id number] MD Po Pettit MD Phone: [phone] Performed at: [address] [id number] MD Fransisca Walker MD Phone: [phone]
[2020-04-19 20:37] VITALS: BP 134/76
--- NOTE | 2020-04-20 02:44 | NUR ---
ASSESSED AT START OF SHIFT, PT A&OX3 WITH SOME FORGETFULNESS. UP WITH SBA TO THE BATHROOM. BSG WITH LONG ACTING COVERAGE PROVIDED. FALL PREC IN PLACE. PT STILL ANTICIPATING DC. WILL CONT WITH POC TILL EOS.
--- NOTE | 2020-04-20 11:39 | NUR ---
PT IS A&O TO SELF, CONFUSED, AND FORGETFUL WITH SHORT TERM MEMORY. PT IS CONTINENT TO BOWEL AND BLADDER, WITH NO BOWEL MOVEMENT TODAY, PT IS ON REGULAR DIET. PT LAST BLOOD SUGAR IS 143. KUN KEANE IS COMING TO VISIT WITH PATIENT TODAY. PT IS SBA AND WEAK AT TIMES WHILE WALKING. FALL PRECAUTIONS ARE IN PLACE, WILL CONTINUE TO MONITOR.
--- NOTE | 2020-04-20 15:53 | NUR ---
CM LFT MESSAGE FOR ADMISSION RE: FACE TO FACE VISIT THAT WAS SUPPOSED TO HAPPEN TODAY. CM LFT VM FOR [facility] TO F/U ON REFERRAL SENT.
[2020-04-20 19:50] VITALS: BP 119/64
--- NOTE | 2020-04-20 20:00 | NUR ---
I AGREE WITH NURSING ASSESSMENT AND NURSING NOTE DONE BY ZONIA/MYRON.
[2020-04-20 20:05] VITALS: BP 177/72
--- NOTE | 2020-04-21 02:33 | NUR ---
ASSESSED AT START OF SHIFT PT A &OX3. BSG CHECKED 69 APPLE JUICE PROVIDED RECHECKED AN HOUR 141 NIGHT TIME GLARGINE PROVIDED. PT UP WITH ASSIST TO THE TOILET. FALL PREC IN PLACE AND CALL LIGHT IN REACH WILL CONT WITH POC TILL EOS.
[2020-04-21 07:45] VITALS: BP 122/60
--- NOTE | 2020-04-21 12:25 | NUR ---
[facility] has accepted the pt for SNF stay pending ins auth. They will submit today. Dc internet media planner to fax updated therapy notes. Message left for pt's son Jasson. [facility] may be able to offer [facility] option as well unless family has put down a deposit with [facility]. Pt is dc ready today or tomorrow once ins auth is in place.
--- NOTE | 2020-04-21 14:23 | NUR ---
ASSUME CARE OF PT AT 0715. PT IS A&OX4 WITH SOME FORGETFULNESS, ACHS. AMBULATES INDEPENDENTLY TO RR, HOWEVER UNSTEADY AT TIMES. PT CONTINENT OF BOWEL AND BLADDER. PT LOOKING FORWARD TO GOING TO FACILITY. FALL PRECAUTIONS IN PLACE, WILL CONTINUE TO MONITOR.
--- NOTE | 2020-04-21 15:44 | NUR ---
FAXED CLINICAL UPDATE TO [facility] SPOKE WITH CORTEZ IN ADM SHE RECEIVED UPDATE AND SUBMITTED FOR AUTH.
--- NOTE | 2020-04-21 18:59 | NUR ---
ASSUMED PT AT 0715. PT IS A&OX4, VSS, CONTINENT TO BOWEL/BLADDER. PATIENT IS DKA. PT BLOOD SUGAR DROPPED 24 WAS TREATED AND RECHECKED THEN RESULTS WAS 40, GLUCOSE TUBE WAS ADMINISTERED AND RECHECKED WITH RESULTS OF 91. PATIENT IS ON A REGULAR DIET. FALL PRECAUTIONS IN PLACE, WILL CONTINUE TO MONITOR.
--- NOTE | 2020-04-21 20:23 | NUR ---
I AGREE WITH NURSING ASSESSMENT AND NURSING NOTE DONE BY ZONIA/MYRON.
--- NOTE | 2020-04-21 22:08 | NUR ---
1900 ASSUMED CARE OF PT 191 BASELINE ASSESSMENT COMPLETED, PT AWAKE ALERT AND ORIENTED WITH NO COMPLAINTS AT THIS TIME. 0 LANTUS GIVEN PER SEP, VICTORIA BRODY NOTIFIED OF CBG 383 AND OF CBG OF 24 THIS EVENING AFTER RECEIVING 12 UNITS SSI, ORDERS TO HOLD SSI FOR TONIGHT. WILL CONTINUE TO MONITOR
[2020-04-22 00:12] VITALS: BP 132/67
[2020-04-22 04:15] VITALS: BP 137/66
[2020-04-22 08:00] VITALS: BP 134/76
--- NOTE | 2020-04-22 11:15 | NUR ---
[facility] called and they have rec'd auth from the pt's ins plan and can accept today. Care team, the attending and the pt were updated. All parties anticipating dc this afternoon. Dc logistics planner to fax orders. Chart copy in progress along with 124C. They have arranged for a w/c van ride at 3-3:30pm. All parties updated and dc logistics planner has notified son Jasson. [facility] worker, Dre notified of her dc plan and will f/u there. Family continuing to work on [facility] placement when dc'd from SNF. Pt is aware of the above and agreeable.
[2020-04-22] MEDS ORDERED: FISH OIL 1,0001 EAC5 PO (12:36)
[2020-04-22] MEDS ORDERED: ACETAMINOPHEN325 M1 PO (12:36)
[2020-04-22] MEDS ORDERED: HUMALOG100 UNIT/1 SUBQ (12:36)
[2020-04-22] MEDS ORDERED: MAGNESIUM400 MG PO (12:36)
[2020-04-22] MEDS ORDERED: LANTUS SUBQ (12:36)
[2020-04-22 15:39] VITALS: BP 143/62
--- NOTE | 2020-04-22 17:29 | NUR ---
ASSUMED PT AT 0715. PT VSS, HAS BRITTLE DIABETES AND BLOOD SUGAR NEEDS TO BE WATCHED CLOSELY. DR PALACIOS WAS NOTIFIED OF THE BLOOD SUGARS ISSUES. PT WAS IMPULSIVE AND EDUCATED OF USING THE CALL LIGHT. PT IS CONTINENT OF BOWEL/BLADDER. PT DISCHARGE TODAY TO [facility], IV WAS REMOVED AND REPORT WAS GIVEN.
== END 2020-04-22 16:45 | DRG 637 ==
LOC: ER 17:15 → EROBS 19:11 → ICU 19:11 → 4S 04-16 01:15
PROVIDERS: Nurse Practitioner Family; Physician Assistant; ADMIT Internal Medicine; ATTEND Internal Medicine
DX: E10.10 Type 1 diabetes mellitus with ketoacidosis without coma (principal); G93.41 Metabolic encephalopathy; E43 Unspecified severe protein-calorie malnutrition; R65.11 Systemic inflammatory response syndrome (SIRS) of non-infectious origin with acute organ dysfunction; N17.0 Acute kidney failure with tubular necrosis; K63.3 Ulcer of intestine; K57.30 Diverticulosis of large intestine without perforation or abscess without bleeding; K52.9 Noninfective gastroenteritis and colitis, unspecified; E86.0 Dehydration; E87.6 Hypokalemia; E78.5 Hyperlipidemia, unspecified; N18.9 Chronic kidney disease, unspecified; F32.9 Major depressive disorder, single episode, unspecified; F39 Unspecified mood [affective] disorder; K64.8 Other hemorrhoids; I12.9 Hypertensive chronic kidney disease with stage 1 through stage 4 chronic kidney disease, or unspecified chronic kidney disease; E10.22 Type 1 diabetes mellitus with diabetic chronic kidney disease; E10.8 Type 1 diabetes mellitus with unspecified complications; D36.9 Benign neoplasm, unspecified site; Z20.828 Contact with and (suspected) exposure to other viral communicable diseases; D50.0 Iron deficiency anemia secondary to blood loss (chronic); Z88.8 Allergy status to other drugs, medicaments and biological substances; Z87.891 Personal history of nicotine dependence; Z91.19 Patient's noncompliance with other medical treatment and regimen; Z79.899 Other long term (current) drug therapy
CPT/HCPCS: 10078; 10102; 62110; 62900; 70005